=== PATIENT | female | born 1930 ===

== ENCOUNTER 2018-09-29 21:43 | Inpatient (IN) ==
[2018-09-29] MEDS ORDERED: SALINE 3% 15 ML NEB TX NEB ONE (22:35)
[2018-09-29] MEDS ORDERED: XOPENEX 1.25 MG/3 ML NEBULE NEB SCH (22:45)
[2018-09-29 23:11] LABS: ABG BASE EXCESS 10.2 mmol/L (-2.0-2.0)
[2018-09-29 23:12] LABS: ABG HCO3 35.6 mmol/L (22-26)
[2018-09-29 23:50] LABS: BASOPHILS % (AUTO) 0.2 % (0.2-1.0); HEMOGLOBIN 12.8 g/dL (12.0-16.0); LYMPHOCYTES # (AUTO) 1.1 X10^3/uL (1.3-2.9); LYMPHOCYTES % (AUTO) 12.1 % (21.0-51.0); MEAN CORPUSCULAR HEMOGLOBIN 35.8 pg (27.0-34.0); MEAN CORPUSCULAR HGB CONC 33.7 g/dL (33.0-35.0); MEAN CORPUSCULAR VOLUME 106.1 fL (80.0-100.0); MEAN PLATELET VOLUME 6.8 fL (7.4-11.0); MONOCYTES # (AUTO) 0.5 x10^3/uL (0.3-0.8); MONOCYTES % (AUTO) 5.9 % (0.0-13.0); NEUTROPHILS # (AUTO) 7.6 x10^3/uL (2.2-4.8); NEUTROPHILS % (AUTO) 81.8 % (42.0-75.0); PLATELET COUNT 323 X10^3/uL (150.0-450.0); RED BLOOD COUNT 3.58 X10^6/uL (3.5-5.4); RED CELL DISTRIBUTION WIDTH 15.2 % (11.6-16.5); WHITE BLOOD COUNT 9.3 X10^3/uL (3.6-10.0)
[2018-09-29] MEDS ORDERED: NS 250 ML IV 250 ML IV PRN (23:51)
[2018-09-29] MEDS ORDERED: LEVAQUIN PREMIX IV 500 MG 500 MG/100 ML BAG IV ONE (23:57)
[2018-09-29] MEDS ORDERED: NS 250 ML IV 250 ML IV ONE (23:58)
[2018-09-30] MEDS: ROCEPHIN VIAL 1 GRAM IVP SCH ×2 (00:08→08:41)
[2018-09-30 00:14] LABS: ALANINE AMINOTRANSFERASE 29 Units/L (12-78); ALBUMIN 2.9 g/dL (3.4-5.0); ALKALINE PHOSPHATASE 112 Units/L (46-116); ASPARTATE AMINO TRANSFERASE 24 Units/L (15-37); BLOOD UREA NITROGEN 9 mg/dL (7-18); CALCIUM 9.1 mg/dL (8.5-10.1); CHLORIDE 100 mmol/L (98-107); COR NA(FOR HYPERGLY) 142 mmol/L (136-145); CREATININE 0.55 mg/dL (0.55-1.02); SODIUM 141 mmol/L (136-145); TOTAL PROTEIN 7.1 g/dL (6.4-8.2); TSH (3RD GENERATION) 0.757 uIU/mL (0.358-3.74); eGFR NON BLACK RACES > 60 (>60)
[2018-09-30] MEDS ORDERED: POTASSIUM CHLORIDE LIQ 20 MEQ UDC PO PRN (00:42)
[2018-09-30] MEDS ORDERED: MAGNESIUM SULFATE 1 GRAM/100 mL PREMIX 1 GM/100 ML BAG IV PRN (00:42)
[2018-09-30] MEDS ORDERED: MICRO K EXTEN CAP 10 MEQ PO PRN (00:42)
[2018-09-30] MEDS ORDERED: K-DUR TAB 20 MEQ PO PRN (00:42)
[2018-09-30] MEDS ORDERED: POTASSIUM CHL 40 MEQ/NS 0.45% 500 ML IV PRN (00:42)
[2018-09-30] MEDS ORDERED: POTASSIUM CHL 60 MEQ/NS 0.45% 500 ML IV PRN (00:42)
[2018-09-30] MEDS: XOPENEX 1.25 MG/3 ML NEBULE NEB SCH ×4 (00:47→17:02)
[2018-09-30 00:48] LABS: HYPOCHROMASIA SLIGHT; PLATELET MORPHOLOGY COMMENT NORMAL (NORMAL)
[2018-09-30 00:49] VITALS: BMI 17.2
[2018-09-30] MEDS ORDERED: BUTT CREAM (COMPOUND) ONE (01:13)
[2018-09-30] MEDS: LEVAQUIN PREMIX IV 500 MG 500 MG/100 ML BAG IV SCH ×2 (01:30→21:21)
[2018-09-30 07:26] LABS: BILIRUBIN,URINE NEGATIVE (NEGATIVE); BLOOD/HEMOGLOBIN,URINE NEGATIVE (NEGATIVE); GLUCOSE, URINE NEGATIVE (NEGATIVE); KETONES,URINE NEGATIVE (NEGATIVE); LEUKOCYTE ESTERASE ,URINE 1+ (NEGATIVE); NITRITES,URINE NEGATIVE (NEGATIVE); PROTEIN,URINE 2+ (NEGATIVE); UROBILINOGEN,URINE 2+ (NORMAL)
[2018-09-30] MEDS ORDERED: MORPHINE SULFATE INJ 2 MG INJ IVP PRN (07:37)
[2018-09-30 07:50] LABS: APPEARANCE,URINE CLEAR (CLEAR); COLOR,URINE AMBER (YELLOW)
[2018-09-30 07:51] LABS: AMORPHOUS SEDIMENT,UR TRACE /HPF (NEGATIVE); BACTERIA,URINE TRACE /HPF (NEGATIVE); RBC,URINE 0-2 /HPF (NONE SEEN); SQUAMOUS EPITHELIAL CELL,UR FEW /HPF (NEGATIVE)
[2018-09-30] MEDS ORDERED: MORPHINE SULFATE INJ 2 MG INJ ONE (08:17)
[2018-09-30 09:20] LABS: BILIRUBIN,URINE NEGATIVE (NEGATIVE); BLOOD/HEMOGLOBIN,URINE 4+ (NEGATIVE); GLUCOSE, URINE NEGATIVE (NEGATIVE); KETONES,URINE 2+ (NEGATIVE); LEUKOCYTE ESTERASE ,URINE 1+ (NEGATIVE); NITRITES,URINE NEGATIVE (NEGATIVE); PROTEIN,URINE 2+ (NEGATIVE); UROBILINOGEN,URINE 1+ (NORMAL)
[2018-09-30 09:43] LABS: BASOPHILS % (AUTO) 0.3 % (0.2-1.0); HEMATOCRIT 38.3 % (36.0-47.0); HEMOGLOBIN 12.7 g/dL (12.0-16.0); LYMPHOCYTES # (AUTO) 1.5 X10^3/uL (1.3-2.9); LYMPHOCYTES % (AUTO) 11.9 % (21.0-51.0); MEAN CORPUSCULAR HEMOGLOBIN 35.1 pg (27.0-34.0); MEAN CORPUSCULAR HGB CONC 33.2 g/dL (33.0-35.0); MEAN CORPUSCULAR VOLUME 105.7 fL (80.0-100.0); MEAN PLATELET VOLUME 6.9 fL (7.4-11.0); MONOCYTES # (AUTO) 0.6 x10^3/uL (0.3-0.8); MONOCYTES % (AUTO) 4.9 % (0.0-13.0); NEUTROPHILS # (AUTO) 10.4 x10^3/uL (2.2-4.8); NEUTROPHILS % (AUTO) 82.9 % (42.0-75.0); PLATELET COUNT 368 X10^3/uL (150.0-450.0); RED BLOOD COUNT 3.63 X10^6/uL (3.5-5.4); RED CELL DISTRIBUTION WIDTH 15.1 % (11.6-16.5); WHITE BLOOD COUNT 12.5 X10^3/uL (3.6-10.0)
[2018-09-30 09:44] LABS: APPEARANCE,URINE HAZY (CLEAR); COLOR,URINE DARK YELLOW (YELLOW); RBC,URINE TNTC /HPF (NONE SEEN)
[2018-09-30 09:45] LABS: AMORPHOUS SEDIMENT,UR 1+ /HPF (NEGATIVE); BACTERIA,URINE TRACE /HPF (NEGATIVE); MUCUS,URINE MODERATE /HPF (NEGATIVE); SQUAMOUS EPITHELIAL CELL,UR MODERATE /HPF (NEGATIVE)
[2018-09-30 09:47] LABS: LACTIC ACID 1.5 mmol/L (0.4-2.0)
[2018-09-30 09:52] LABS: ALANINE AMINOTRANSFERASE 26 Units/L (12-78); ALBUMIN 2.7 g/dL (3.4-5.0); ALKALINE PHOSPHATASE 117 Units/L (46-116); ANISOCYTOSIS 1+; ASPARTATE AMINO TRANSFERASE 25 Units/L (15-37); BLOOD UREA NITROGEN 8 mg/dL (7-18); CALCIUM 8.9 mg/dL (8.5-10.1); CARBON DIOXIDE 31.1 mmol/L (21-32); CHLORIDE 100 mmol/L (98-107); COR CA(FOR HYPOALB) 9.9 mg/dL (8.5-10.1); COR NA(FOR HYPERGLY) 140 mmol/L (136-145); CREATINE KINASE 50 Units/L (26-192); CREATININE 0.48 mg/dL (0.55-1.02); PLATELET MORPHOLOGY COMMENT NORMAL (NORMAL); SODIUM 140 mmol/L (136-145); TROPONIN I 0.03 ng/mL (0-1.5); eGFR NON BLACK RACES > 60 (>60)
[2018-09-30] MEDS: LASIX IVP SCH ×2 (10:03→21:21)
[2018-09-30] MEDS: SOLU-Medrol 40 MG VIAL IVP SCH ×2 (10:04→21:21)
--- NOTE | 2018-09-30 10:16 | RAD ---
HISTORY: Pneumonia Study: Single view of the chest. Comparison: None. Findings: Cardiomegaly. Complete whiteout of the left hemithorax without definite mediastinal shift. This is confounded by patient's rotation. Osseous structures demonstrate no acute abnormality. IMPRESSION: 1. Complete whiteout of the left hemithorax. Mediastinal shift is indeterminate given the poor positioning of the patient. Differential considerations include large pleural effusion, left main bronchus obstruction with atelectasis or severe left-sided airspace disease. Correlate clinically and with CT if clinically indicated. Reported By:
--- NOTE | 2018-09-30 14:43 | CT ---
CT CHEST WITHOUT IV CONTRAST HISTORY: Shortness of breath with cough. Complete whiteout left hemithorax. Comparison: None Technique: Multiple axial images of the chest were obtained from the thoracic inlet to the upper abdomen. Dose reduction techniques including Automated Exposure Control (AEC) and adjustment of mA and kV were utlized. Findings: The evaluation of the mediastinal structures is diminished without the use of IV contrast. The heart is normal in size. No pericardial effusion. Severe coronary calcification No suspicious mediastinal or axillary lymph nodes. Complete obstruction of the left main bronchus with complete atelectasis of the left lung. Left pleural effusion. Airspace opacities within the right upper and lower lobes. Airways are patent. No suspicious pulmonary nodules or masses. Limited images of the upper abdomen are unremarkable. Severe degenerative disc disease as well as multiple compression fractures of the thoracic spine including its crest T3, 4, 6, 8, 9, 10, 11, 12, L1, L2, L3. IMPRESSION: 1. Complete obstruction of the left lower lobe bronchus by what appears to be a mucous plug. There is subsequent total atelectasis of the left lung and left-sided pleural effusion. Experienced bronchoscopy would likely be of great benefit to this patient. 2. Multifocal pneumonia of the aerated right lung. 3. Multiple compression fractures of the thoracic and lumbar spine. Reported By:
[2018-09-30 15:34] LABS: CKMB % 1.5 % (<4); CREATINE KINASE MB 1.4 ng/mL (0-4.0); TROPONIN I 0.06 ng/mL (0-1.5)
[2018-09-30 15:42] LABS: ABG BASE EXCESS 8.9 mmol/L (-2.0-2.0)
[2018-09-30 15:43] LABS: ABG HCO3 34.6 mmol/L (22-26)
--- NOTE | 2018-09-30 18:13 | DR.H&P ---
H&P - History & Physical for Day of: H&P Date: 09/29/18 - Chief Complaint Chief Complaint: RESP DISTRESS, INCREASED AMS - History of Present Illness History of Present Illness: 88 WF DIRECT ADMIT FROM [facility] WITH INCREASED RESPIRATORY DISTRESS, PT HAD CXR WITH DIFFUSE RIGHT LING OPACITY SUGGESTING PNEUMONIA WITH EFFUSION. PT HAS A VERY MOIST, WET NONPRODUCTIVE COUGH. ON ADMISSION TO FLOOR, 02 SATS RANGE FROM MID 70'S TO HIGH 70'S. PT HAS PMH OF CHF, HTN, HEARING IMPAIRMENT, OA, DEMENTIA. PT ADMITTED FOR TREATMENT OF ACUTE ILLNESS. - Past Medical History Past Medical History: Anxiety, Arthritis, CHF, Dementia, GERD - Past Surgical History Surgical History: Unknown - Social History Does patient currently use any type of tobacco product: No Have you used tobacco products in the last 12 months: No Does any household member use tobacco: No Alcohol Use: None Drug Use: None - Medications Home Medications: Sulfa (Sulfonamide Antibiotics) [SULFA] Allergy (Verified 09/29/18 22:28) CONTINUE taking the following medications acetaminophen [Tylenol] 650 mg PO Q6H PRN 09/30/18 [History] acetaminophen-codeine [Tylenol-Codeine #3] 1 tab PO Q6H PRN 09/30/18 [History] albuterol sulfate 3 ml INHALATION Q6H 09/30/18 [History] alum-mag hydroxide-simeth [Maalox Maximum Strength] 30 ml PO Q4H PRN 09/30/18 [History] aspirin 81 mg PO DAILY 09/30/18 [History] brimonidine 1 drp OPHTHALMIC (EYE) BID 09/30/18 [History] calcium carbonate-vitamin D3 1 tab PO TID 09/30/18 [History] diphenhydramine HCl [Yetpp-T-Yapq] 25 mg PO HS 09/30/18 [History] docusate sodium [DOK] 100 mg PO DAILY 09/30/18 [History] donepezil 5 mg PO HS 09/30/18 [History] dorzolamide 1 drp OPHTHALMIC (EYE) BID 09/30/18 [History] escitalopram oxalate 10 mg PO DAILY 09/30/18 [History] furosemide 20 mg PO QMWF 09/30/18 [History] gabapentin 300 mg PO HS 09/30/18 [History] levofloxacin [Levaquin] 500 mg PO DAILYX7 09/30/18 [History] multivitamin with iron-mineral [Multilex] 1 tab PO DAILY 09/30/18 [History] omeprazole 20 mg PO DAILY 09/30/18 [History] ondansetron HCl [Zofran] 8 mg PO Q8H PRN 09/30/18 [History] phenobarbital 64.8 mg PO BID 09/30/18 [History] phenytoin sodium extended 200 mg PO HS 09/30/18 [History] polyvinyl alcohol [LiquiTears] 2 drp OPHTHALMIC (EYE) QID 09/30/18 [History] potassium chloride 8 meq PO QMWF 09/30/18 [History] protein supplement [ProMod Protein] 30 ml PO BID 09/30/18 [History] vit C,B-Ff-ylwne-lutein-zeaxan [PreserVision AREDS-2] 1 tab PO DAILY 09/30/18 [History] - Review of Systems Constitutional: Weakness Eyes: Vision Change (CHRONIC BLINDNESS) ENT: No Symptoms Reported Respiratory: Cough, Shortness of Breath, Sputum, Wheezing Gastrointestinal: No Symptoms Reported Genitourinary: No Symptoms Reported Musculoskeletal: No Symptoms Reported Skin: Wound Neurological: Weakness, Confusion - Physical Exam Vital Signs: Temperature 100.0 F Pulse Rate [Right Brachial] 106 Pulse Rate 82 Respiratory Rate 48 Blood Pressure [Right Arm] 114/56 Blood Pressure 92/55 O2 Sat by Pulse Oximetry 100 Oriented: Person Eyes: Discharge Ear: Normal Nose: Normal Throat: Dry Respiratory: Rhonchi Throughout, RUL Diminished, RML Diminished, RLL Diminished, LML Diminished, LLL Diminished Cardiovascular: Tachycardia : Normal Auscultation: Bowel Sounds: Normal Palpation: Normal Tenderness: Normal Skin: Wound (SACRAL DECUBITUS STAGE II) Musculoskeletal: Right, Left, Arm, Leg, Instability Affect: Anxious Speech Pattern: Aphasic - Assessment/Plan (1) Respiratory distress Status: Acute Plan: ADMIT, BLOOD AND SPUTUM CULTURE. UA AND UC. CBC CMP CXR ON ADMISSION. EKG, VERIFY HOME MEDICATION. IV ATBX, SUPPLEMENTAL O2, ABG ON ADMISSION (2) Pneumonia Status: Acute (3) Pleural effusion Status: Acute (4) Dementia Status: Acute (5) Seizure disorder Status: Acute - Allergies Allergies/Adverse Reactions: Allergies Allergy/AdvReac Type Severity Reaction Status Date / Time Sulfa (Sulfonamide Allergy Verified 09/29/18 22:28 Antibiotics) [SULFA]
--- NOTE | 2018-09-30 18:21 | PCM.PROG ---
Progress Note - Progress Note for Day of Date of Exam: 09/30/18 - Subjective Subjective: 88 WF DIRECT ADMIT FROM [facility] WITH RESP DISTRESS AND PNEUMONIA, CXR WITH COMPLETE OPACIFICATION TO RIGHT LUNG. PT WAS ADMITTED TO FLOOR LATE LAST NIGHT AND MOVED TO ICU THIS AM. INSERTED VILLANUEVA CATHETER, IV LASIX 40MG BID WITH POTASSIUM REPLACEMENT, IV SOLU MEDROL AND CT CHEST THIS AM, REPEAT ABD. PT WAS HYPOXIC ON ARRIVAL WITH PO2 32, CURRENTLY ON HIGH FLOW HEAT O2. PT HAS DIFFUSE RHONCHI AND LABORED RESPIRATIONS. FAMILY NOTIFIED PER NURSING STAFF ABOUT CRITICAL STATUS. - Past Medical Family Social History Past Med/Fam/Surg Hx: No changes since H&P Allergies: Allergies Sulfa (Sulfonamide Antibiotics) [SULFA] Allergy (Verified 09/29/18 22:28) - Review of Systems ROS: No change since H&P - Vital Signs and I&O's Vital Signs: Temperature 100.0 F Pulse Rate [Right Brachial] 106 Pulse Rate 82 Respiratory Rate 48 Blood Pressure [Right Arm] 114/56 Blood Pressure 92/55 O2 Sat by Pulse Oximetry 100 Intake and Output: Intake & Output 09/28/18 09/29/18 09/30/18 10/01/18 11:59 11:59 11:59 11:59 Intake Total 144 / 144 0 / 0 Output Total 400 / 400 1200 / 1200 Balance -256 / -256 -1200 / -1200 - Physical Exam Oriented: Person Eyes: Discharge Ear: Normal Nose: Normal Throat: Dry Respiratory: Diminished, Rhonchi Cardiovascular: Tachycardia : Normal Auscultation: Bowel Sounds: Normal Tenderness: Normal Skin: Wound (SACRAL DECUBITUS STAGE II) Musculoskeletal: Right, Left, Arm, Leg, Instability Affect: Anxious Speech Pattern: Aphasic - Laboratory and Diagnostics Result Diagrams: 09/30/18 09:22 09/30/18 09:22 Labs: 09/29/18 23:36 Sputum - Endotracheal Wash - Final Laboratory WBC 12.5 X10^3/uL (3.6-10.0) H 09/30/18 09:22 RBC 3.63 X10^6/uL (3.5-5.4) 09/30/18 09:22 Hgb 12.7 g/dL (12.0-16.0) 09/30/18 09:22 Hct 38.3 % (36.0-47.0) 09/30/18 09: MCV 105.7 fL (80.0-100.0) H 09/30/18 09: MCH 35.1 pg (27.0-34.0) H 09/30/18 09: MCHC 33.2 g/dL (33.0-35.0) 09/30/18 09: RDW 15.1 % (11.6-16.5) 09/30/18: Plt Count 368 X10^3/uL (150.0-450.0) 09/30/18: Plt Count Comment Adequate (ADEQUATE) 09/30/18: MPV 6.9 fL (7.4-11.0) L 09/30/18: Neut % (Auto) 82.9 % (42.0-75.0) H 09/30/18: Lymph % (Auto) 11.9 % (21.0-51.0) L 09/30/18: [place] % (Auto) 4.9 % (0.0-13.0) 09/30/18: Eos % (Auto) 0.0 % (0.9-2.9) L 09/30/18: Baso % (Auto) 0.3 % (0.2-1.0) 09/30/18: Neut # (Auto) 10.4 x10^3/uL (2.2-4.8) H 09/30/18: Lymph # (Auto) 1.5 X10^3/uL (1.3-2.9) 09/30/18 09:22 [place] # (Auto) 0.6 x10^3/uL (0.3-0.8) 09/30/18: Eos # (Auto) 0.0 x10^3/uL (0.0-0.2) 09/30/18: Baso # (Auto) 0.0 X10^3/uL (0.0-0.1) 09/30/18: Absolute Nucleated RBC 0.1 /100WBC 09/30/18: Plt Morphology Comment Normal (NORMAL) 09/30/18: RBC Morphology Abnormal (NORMAL) A 09/30/18 09:22 Hypochromasia Slight A 09/29/18 23:10 Anisocytosis 1+ A 09/30/18 09:22 Macrocytosis 1+ A 09/30/18 09:22 Sample Site Rbr 09/30/18 15:25 ABG pH 7.440 (7.35-7.45) 09/30/18 15:25 ABG pCO2 51.0 mmHg (35.0-45.0) H* 09/30/18 15:25 ABG pO2 43.0 mmHg (80.0-100.0) L* 09/30/18 15:25 ABG HCO3 34.6 mmol/L (22-26) H* 09/30/18 15:25 ABG O2 Saturation 81.0 % (90-100) L* 09/30/18 15:25 ABG Base Excess 8.9 mmol/L (-2.0-2.0) H 09/30/18 15:25 Jean-Claude Test N/a 09/30/18 15:25 A-a Gradient 271.0 mmHg 09/30/18 15:25 FiO2 53.0 09/30/18 15:25 Blood Gas Comments Pt mary grace well elj 09/30/18 15:25 Sodium 140 mmol/L (136-145) 09/30/18 09:22 Corrected Sodium 140 mmol/L (136-145) 09/30/18 09:22 Potassium 3.5 mmol/L (3.5-5.1) 09/30/18 09:22 Chloride 100 mmol/L (98-107) 09/30/18 09:22 Carbon Dioxide 31.1 mmol/L (21-32) 09/30/18 09:22 BUN 8 mg/dL (7-18) 09/30/18 09:22 Creatinine 0.48 mg/dL (0.55-1.02) L 09/30/18 09:22 Est GFR (MDRD) Af Amer > 60 (>60) 09/30/18 09:22 Est GFR (MDRD) Non-Af > 60 (>60) 09/30/18 09:22 Glucose 115 mg/dL (65-99) H 09/30/18 09:22 Lactic Acid 1.5 mmol/L (0.4-2.0) 09/30/18 09:22 Calcium 8.9 mg/dL (8.5-10.1) 09/30/18 09:22 Corrected Calcium 9.9 mg/dL (8.5-10.1) 09/30/18 09:22 Magnesium 1.9 mg/dL (1.7-2.9) 09/29/18 23:10 Total Bilirubin 0.60 mg/dL (0.2-1.0) 09/30/18 09:22 AST 25 Units/L (15-37) 09/30/18 09:22 ALT 26 Units/L (12-78) 09/30/18 09:22 Alkaline Phosphatase 117 Units/L (46-116) H 09/30/18 09:22 Creatine Kinase 94 Units/L (26-192) 09/30/18 15:05 CK-MB (CK-2) 1.4 ng/mL (0-4.0) 09/30/18 15:05 CK/CKMB % Calc 1.5 % (<4) 09/30/18 15:05 Troponin I 0.06 ng/mL (0-1.5) 09/30/18 15:05 Total Protein 7.0 g/dL (6.4-8.2) 09/30/18 09:22 Albumin 2.7 g/dL (3.4-5.0) L 09/30/18 09:22 Globulin 4.3 g/dL (2.5-4.5) 09/30/18 09:22 Albumin/Globulin Ratio 0.6 Ratio (1.1-2.1) L 09/30/18 09:22 Free T4 1.10 ng/dL (0.76-1.46) 09/29/18 23:10 TSH 3rd Generation 0.757 uIU/mL (0.358-3.74) 09/29/18 23:10 Specimen Type Catherized urine 09/30/18 09:05 Urine Color Dark yellow (YELLOW) 09/30/18 09:05 Urine Appearance Hazy (CLEAR) 09/30/18 09:05 Urine pH 5.0 (5.0 - 8.0) 09/30/18 09:05 Ur Specific [place] 1.020 (1.000-1.030) 09/30/18 09:05 Urine Protein 2+ (NEGATIVE) 09/30/18 09:05 Urine Glucose (UA) Negative (NEGATIVE) 09/30/18 09:05 Urine Ketones 2+ (NEGATIVE) 09/30/18 09:05 Urine Occult Blood 4+ (NEGATIVE) 09/30/18 09:05 Urine Nitrite Negative (NEGATIVE) 09/30/18 09:05 Urine Bilirubin Negative (NEGATIVE) 09/30/18 09:05 Urine Urobilinogen 1+ (NORMAL) 09/30/18 09:05 Ur Leukocyte Esterase 1+ (NEGATIVE) 09/30/18 09:05 Urine RBC Tntc /HPF (NONE SEEN) 09/30/18 09:05 Urine WBC 3-5 /HPF (NONE SEEN) 09/30/18 09:05 Ur Squamous Epith Cells Moderate /HPF (NEGATIVE) 09/30/18 09:05 Amorphous Sediment 1+ /HPF (NEGATIVE) 09/30/18 09:05 Urine Bacteria Trace /HPF (NEGATIVE) 09/30/18 09:05 Urine Mucus Moderate /HPF (NEGATIVE) 09/30/18 09:05 Ur Culture Indicated? No/not indicated 09/30/18 09:05 - Plan (1) Respiratory distress Status: Acute Plan: ICU STATUS, CT CHEST THIS AM AND REPEAT ABG. BLOOD AND SPUTUM CULTURE. UA AND UC ON ADMISSION, WOUND CARE. REPEAT AM LABS. EKG AND SERIAL CE, RESUMED DILANTIN AND PHENOBARBITAL. CONTINUE SUPPLEMENTAL O2 AND STRICT I & OS. IV ATBX, SUPPLEMENTAL O2, ABG ON ADMISSION (2) Pneumonia Status: Acute (3) Pleural effusion Status: Acute (4) Dementia Status: Acute (5) Seizure disorder Status: Acute
[2018-09-30] MEDS: ALPHAGAN 0.2% OPHTH SOLN OP SCH (21:21)
[2018-09-30] MEDS: ARICEPT TAB 5 MG PO SCH (21:38)
[2018-09-30] MEDS: DILANTIN CAP 100 MG EXT REL PO SCH (21:38)
[2018-09-30] MEDS: PHENOBARBITAL TAB 30 MG (32.4MG) PO SCH (21:38)
[2018-09-30 21:43] LABS: CKMB % 1.3 % (<4); CREATINE KINASE MB 1.5 ng/mL (0-4.0); TROPONIN I 0.04 ng/mL (0-1.5)
[2018-09-30] MEDS: TRUSOPT PLUS (OPHTH) OP SCH (21:55)
[2018-10-01] MEDS: XOPENEX 1.25 MG/3 ML NEBULE NEB SCH ×4 (01:11→23:55)
[2018-10-01 06:10] LABS: BASOPHILS # (AUTO) 0.1 X10^3/uL (0.0-0.1); BASOPHILS % (AUTO) 0.6 % (0.2-1.0); HEMATOCRIT 33.7 % (36.0-47.0); HEMOGLOBIN 11.6 g/dL (12.0-16.0); LYMPHOCYTES # (AUTO) 1.3 X10^3/uL (1.3-2.9); MEAN CORPUSCULAR HEMOGLOBIN 35.7 pg (27.0-34.0); MEAN CORPUSCULAR HGB CONC 34.4 g/dL (33.0-35.0); MEAN CORPUSCULAR VOLUME 103.8 fL (80.0-100.0); MEAN PLATELET VOLUME 6.9 fL (7.4-11.0); MONOCYTES # (AUTO) 0.6 x10^3/uL (0.3-0.8); MONOCYTES % (AUTO) 5.4 % (0.0-13.0); NEUTROPHILS # (AUTO) 8.6 x10^3/uL (2.2-4.8); PLATELET COUNT 322 X10^3/uL (150.0-450.0); RED BLOOD COUNT 3.25 X10^6/uL (3.5-5.4); RED CELL DISTRIBUTION WIDTH 14.9 % (11.6-16.5); WHITE BLOOD COUNT 10.5 X10^3/uL (3.6-10.0)
[2018-10-01 06:36] LABS: ALANINE AMINOTRANSFERASE 22 Units/L (12-78); ALBUMIN 2.4 g/dL (3.4-5.0); ALKALINE PHOSPHATASE 131 Units/L (46-116); ASPARTATE AMINO TRANSFERASE 28 Units/L (15-37); BLOOD UREA NITROGEN 16 mg/dL (7-18); CALCIUM 8.8 mg/dL (8.5-10.1); CARBON DIOXIDE 33.3 mmol/L (21-32); CHLORIDE 100 mmol/L (98-107); COR CA(FOR HYPOALB) 10.1 mg/dL (8.5-10.1); SODIUM 143 mmol/L (136-145); TOTAL PROTEIN 6.5 g/dL (6.4-8.2); eGFR NON BLACK RACES > 60 (>60)
[2018-10-01] MEDS: K-RIDER 10 MEQ/NS 100 ML 10 MEQ/100 ML BAG IV PRN ×4 (06:47→12:35)
[2018-10-01] MEDS: LASIX IVP SCH ×2 (08:15→20:48)
[2018-10-01] MEDS: SOLU-Medrol 40 MG VIAL IVP SCH (08:15)
[2018-10-01] MEDS: ROCEPHIN VIAL 1 GRAM IVP SCH (08:15)
[2018-10-01] MEDS: PHENOBARBITAL TAB 30 MG (32.4MG) PO SCH ×2 (09:46→20:49)
[2018-10-01] MEDS: TRUSOPT PLUS (OPHTH) OP SCH ×2 (09:47→20:46)
[2018-10-01] MEDS: ALPHAGAN 0.2% OPHTH SOLN OP SCH ×2 (09:48→20:48)
--- NOTE | 2018-10-01 09:51 | RAD ---
HISTORY: Shortness of breath, coughing, lethargic. Study: Single-view chest Comparison: Chest x-ray and CT scan of the chest both 09/30/2018. Findings: There is right to left shift of the mediastinum and trachea with complete whiteout of the left lung compatible with central bronchial obstruction as seen on prior studies. This is not significantly changed. Improving aeration is noted in the right lung peripherally with still considerable interstitial infiltrate remaining. Heart size is difficult to estimate, probably normal. No pneumothorax is seen. There are multiple healed left rib fracture seen. IMPRESSION: Continued white out of the left lung. Patient may need therapeutic bronchoscopy. Improving aeration in the right lung with still some peripheral interstitial infiltrate present. Reported By:
[2018-10-01] MEDS: KLOR-CON PO PRN (15:00)
[2018-10-01] MEDS: MORPHINE SULFATE INJ 2 MG INJ IVP PRN ×3 (15:29→23:37)
[2018-10-01] MEDS: LEVAQUIN PREMIX IV 500 MG 500 MG/100 ML BAG IV SCH (20:48)
[2018-10-01] MEDS: ARICEPT TAB 5 MG PO SCH (20:48)
[2018-10-01] MEDS: DILANTIN CAP 100 MG EXT REL PO SCH (20:49)
[2018-10-02] MEDS: XOPENEX 1.25 MG/3 ML NEBULE NEB SCH ×3 (05:12→17:43)
[2018-10-02 05:55] LABS: BASOPHILS % (AUTO) 0.3 % (0.2-1.0); HEMATOCRIT 32.5 % (36.0-47.0); LYMPHOCYTES # (AUTO) 1.3 X10^3/uL (1.3-2.9); LYMPHOCYTES % (AUTO) 12.5 % (21.0-51.0); MEAN CORPUSCULAR HEMOGLOBIN 35.7 pg (27.0-34.0); MEAN CORPUSCULAR HGB CONC 33.9 g/dL (33.0-35.0); MEAN CORPUSCULAR VOLUME 105.3 fL (80.0-100.0); MEAN PLATELET VOLUME 7.1 fL (7.4-11.0); MONOCYTES # (AUTO) 0.9 x10^3/uL (0.3-0.8); MONOCYTES % (AUTO) 8.3 % (0.0-13.0); NEUTROPHILS # (AUTO) 8.3 x10^3/uL (2.2-4.8); NEUTROPHILS % (AUTO) 78.9 % (42.0-75.0); PLATELET COUNT 371 X10^3/uL (150.0-450.0); RED BLOOD COUNT 3.09 X10^6/uL (3.5-5.4); RED CELL DISTRIBUTION WIDTH 15.3 % (11.6-16.5); WHITE BLOOD COUNT 10.5 X10^3/uL (3.6-10.0)
[2018-10-02 06:08] LABS: HYPOCHROMASIA SLIGHT; PLATELET MORPHOLOGY COMMENT NORMAL (NORMAL)
[2018-10-02 06:10] LABS: ALANINE AMINOTRANSFERASE 30 Units/L (12-78); ALBUMIN 2.6 g/dL (3.4-5.0); ALKALINE PHOSPHATASE 121 Units/L (46-116); ASPARTATE AMINO TRANSFERASE 45 Units/L (15-37); BLOOD UREA NITROGEN 19 mg/dL (7-18); CALCIUM 8.7 mg/dL (8.5-10.1); CARBON DIOXIDE 30.2 mmol/L (21-32); CHLORIDE 98 mmol/L (98-107); COR CA(FOR HYPOALB) 9.8 mg/dL (8.5-10.1); CREATININE 0.68 mg/dL (0.55-1.02); SODIUM 141 mmol/L (136-145); TOTAL PROTEIN 6.8 g/dL (6.4-8.2); eGFR NON BLACK RACES > 60 (>60)
[2018-10-02] MEDS: ROCEPHIN VIAL 1 GRAM IVP SCH (08:22)
[2018-10-02] MEDS: TRUSOPT PLUS (OPHTH) OP SCH ×2 (08:22→20:35)
[2018-10-02] MEDS: ALPHAGAN 0.2% OPHTH SOLN OP SCH ×2 (08:22→20:36)
[2018-10-02] MEDS: LASIX IVP SCH ×2 (10:03→20:30)
[2018-10-02] MEDS: PHENOBARBITAL TAB 30 MG (32.4MG) PO SCH ×2 (10:18→20:37)
--- NOTE | 2018-10-02 13:54 | PCM.PROG ---
Progress Note - Progress Note for Day of Date of Exam: 10/01/18 - Subjective Subjective: 88 WF DIRECT ADMIT FROM [facility] WITH RESP DISTRESS AND PNEUMONIA. PT CURRENTLY IN ICU WITH BIPAP THERAPY, PT TOLERATING WELL, MUCH IMPROVED THIS AM SINCE ADMISSION, PT OPENING EYES AND HAS APPROPRIATE VERBAL RESPONSES. PT SISTER HAS BEEN NOTIFIED ABOUT HER HEALTH STATUS. PT HAD DIFFUSE RHONCHI THIS AM, ASKING TO DRINK. WILL CHANGE TO HEATED HIGH FLOW O2 PER RESPIRATORY, CONTINUE LASIX AND POTASSIUM REPLACEMENT. K THIS AM 2.9, RECEIVING K RIDER. WILL CONSULT SPEECH FOR BEDSIDE SWALLOW EVALUATION AND RESUME HOME ANTISEIZURE MEDICATION - Past Medical Family Social History Past Med/Fam/Surg Hx: No changes since H&P Allergies: Allergies Sulfa (Sulfonamide Antibiotics) [SULFA] Allergy (Verified 09/29/18 22:28) - Review of Systems ROS: No change since H&P - Vital Signs and I&O's Vital Signs: Temperature 100.6 F Pulse Rate [Right Brachial] 106 Pulse Rate 111 Respiratory Rate 29 Blood Pressure [Right Arm] 114/56 Blood Pressure 98/56 O2 Sat by Pulse Oximetry 96 Intake and Output: Intake & Output 09/30/18 10/01/18 10/02/18 10/03/18 11:59 11:59 11:59 11:59 Intake Total 144 / 144 158 / 158 950 / 950 Output Total 400 / 400 1700 / 1700 1150 / 1150 Balance -256 / -256 -1542 / -1542 -200 / -200 - Physical Exam Oriented: Person Eyes: Discharge Ear: Normal Nose: Normal Throat: Dry Respiratory: Diminished, Rhonchi Cardiovascular: Tachycardia : Normal Auscultation: Bowel Sounds: Normal Tenderness: Normal Skin: Wound (SACRAL DECUBITUS STAGE II) Musculoskeletal: Right, Left, Arm, Leg, Instability Mood Description: Calm Speech Pattern: Appropriate - Laboratory and Diagnostics Result Diagrams: 10/02/18 05:22 10/02/18 12:26 Labs: 09/29/18 23:36 Sputum - Endotracheal Wash Sputum Culture - Final Escherichia Coli 09/29/18 23:36 Sputum - Endotracheal Wash - Final 09/30/18 04:45 Urine,Catheterized Urine Culture - Final 09/29/18 23:10 Blood Blood Culture - Preliminary 09/29/18 23:30 Blood Blood Culture - Preliminary Laboratory WBC 10.5 X10^3/uL (3.6-10.0) H 10/02/18 05:22 RBC 3.09 X10^6/uL (3.5-5.4) L 10/02/18 05:22 Hgb 11.0 g/dL (12.0-16.0) L 10/02/18 05:22 Hct 32.5 % (36.0-47.0) L 10/02/18 05:22 MCV 105.3 fL (80.0-100.0) H 10/02/18 05:22 MCH 35.7 pg (27.0-34.0) H 10/02/18 05:22 MCHC 33.9 g/dL (33.0-35.0) 10/02/18 05:22 RDW 15.3 % (11.6-16.5) 10/02/18 05:22 Plt Count 371 X10^3/uL (150.0-450.0) 10/02/18 05:22 Plt Count Comment Adequate (ADEQUATE) 10/02/18 05:22 MPV 7.1 fL (7.4-11.0) L 10/02/18 05:22 Neut % (Auto) 78.9 % (42.0-75.0) H 10/02/18 05:22 Lymph % (Auto) 12.5 % (21.0-51.0) L 10/02/18 05:22 [place] % (Auto) 8.3 % (0.0-13.0) 10/02/18 05:22 Eos % (Auto) 0.0 % (0.9-2.9) L 10/02/18 05:22 Baso % (Auto) 0.3 % (0.2-1.0) 10/02/18 05:22 Neut # (Auto) 8.3 x10^3/uL (2.2-4.8) H 10/02/18 05:22 Lymph # (Auto) 1.3 X10^3/uL (1.3-2.9) 10/02/18 05:22 [place]at # (Auto) 0.9 x10^3/uL (0.3-0.8) H 10/02/18 05:22 Eos # (Auto) 0.0 x10^3/uL (0.0-0.2) 10/02/18 05:22 Baso # (Auto) 0.0 X10^3/uL (0.0-0.1) 10/02/18 05:22 Absolute Nucleated RBC 0.0 /100WBC 10/02/18 05:22 Plt Morphology Comment Normal (NORMAL) 10/02/18 05:22 RBC Morphology Abnormal (NORMAL) A 10/02/18 05:22 Hypochromasia Slight A 10/02/18 05:22 Anisocytosis 1+ A 09/30/18 09:22 Macrocytosis 1+ A 10/02/18 05:22 Sample Site Rbr 09/30/18 15:25 ABG pH 7.440 (7.35-7.45) 09/30/18 15:25 ABG pCO2 51.0 mmHg (35.0-45.0) H* 09/30/18 15:25 ABG pO2 43.0 mmHg (80.0-100.0) L* 09/30/18 15:25 ABG HCO3 34.6 mmol/L (22-26) H* 09/30/18 15:25 ABG O2 Saturation 81.0 % (90-100) L* 09/30/18 15:25 ABG Base Excess 8.9 mmol/L (-2.0-2.0) H 09/30/18 15:25 Jean-Claude Test N/a 09/30/18 15:25 A-a Gradient 271.0 mmHg 09/30/18 15:25 FiO2 53.0 09/30/18 15:25 Blood Gas Comments Pt mary grace well elj 09/30/18 15:25 Sodium 141 mmol/L (136-145) 10/02/18 05:22 Corrected Sodium TNP 10/02/18 05:22 Potassium 3.9 mmol/L (3.5-5.1) 10/02/18 12:26 Chloride 98 mmol/L (98-107) 10/02/18 05:22 Carbon Dioxide 30.2 mmol/L (21-32) 10/02/18 05:22 BUN 19 mg/dL (7-18) H 10/02/18 05:22 Creatinine 0.68 mg/dL (0.55-1.02) 10/02/18 05:22 Est GFR (MDRD) Af Amer > 60 (>60) 10/02/18 05:22 Est GFR (MDRD) Non-Af > 60 (>60) 10/02/18 05:22 Glucose 86 mg/dL (65-99) 10/02/18 05:22 Lactic Acid 1.5 mmol/L (0.4-2.0) 09/30/18 09:22 Calcium 8.7 mg/dL (8.5-10.1) 10/02/18 05:22 Corrected Calcium 9.8 mg/dL (8.5-10.1) 10/02/18 05:22 Magnesium 1.9 mg/dL (1.7-2.9) 09/29/18 23:10 Total Bilirubin 0.60 mg/dL (0.2-1.0) 10/02/18 05:22 AST 45 Units/L (15-37) H 10/02/18 05:22 ALT 30 Units/L (12-78) 10/02/18 05:22 Alkaline Phosphatase 121 Units/L (46-116) H 10/02/18 05:22 Creatine Kinase 116 Units/L (26-192) 09/30/18 21:15 CK-MB (CK-2) 1.5 ng/mL (0-4.0) 09/30/18 21:15 CK/CKMB % Calc 1.3 % (<4) 09/30/18 21:15 Troponin I 0.04 ng/mL (0-1.5) 09/30/18 21:15 Total Protein 6.8 g/dL (6.4-8.2) 10/02/18 05:22 Albumin 2.6 g/dL (3.4-5.0) L 10/02/18 05:22 Globulin 4.2 g/dL (2.5-4.5) 10/02/18 05:22 Albumin/Globulin Ratio 0.6 Ratio (1.1-2.1) L 10/02/18 05:22 Free T4 1.10 ng/dL (0.76-1.46) 09/29/18 23:10 TSH 3rd Generation 0.757 uIU/mL (0.358-3.74) 09/29/18 23:10 Specimen Type Catherized urine 09/30/18 09:05 Urine Color Dark yellow (YELLOW) 09/30/18 09:05 Urine Appearance Hazy (CLEAR) 09/30/18 09:05 Urine pH 5.0 (5.0 - 8.0) 09/30/18 09:05 Ur Specific [place] 1.020 (1.000-1.030) 09/30/18 09:05 Urine Protein 2+ (NEGATIVE) 09/30/18 09:05 Urine Glucose (UA) Negative (NEGATIVE) 09/30/18 09:05 Urine Ketones 2+ (NEGATIVE) 09/30/18 09:05 Urine Occult Blood 4+ (NEGATIVE) 09/30/18 09:05 Urine Nitrite Negative (NEGATIVE) 09/30/18 09:05 Urine Bilirubin Negative (NEGATIVE) 09/30/18 09:05 Urine Urobilinogen 1+ (NORMAL) 09/30/18 09:05 Ur Leukocyte Esterase 1+ (NEGATIVE) 09/30/18 09:05 Urine RBC Tntc /HPF (NONE SEEN) 09/30/18 09:05 Urine WBC 3-5 /HPF (NONE SEEN) 09/30/18 09:05 Ur Squamous Epith Cells Moderate /HPF (NEGATIVE) 09/30/18 09:05 Amorphous Sediment 1+ /HPF (NEGATIVE) 09/30/18 09:05 Urine Bacteria Trace /HPF (NEGATIVE) 09/30/18 09:05 Urine Mucus Moderate /HPF (NEGATIVE) 09/30/18 09:05 Ur Culture Indicated? No/not indicated 09/30/18 09:05 - Plan (1) Respiratory distress Status: Acute Plan: CONTINUOUS CARDIAC AND O2 SATURATION MONITORING. BLOOD CULTURE COLLECTED ON ADMISSION. UA AND UC ON ADMISSION, WOUND CARE. REPEAT AM LABS. EKG AND S ERIAL CE OBTAINED ON ADMISSION AND WERE STABLE, RESUMED DILANTIN AND PHENOBARBITAL. CONTINUE SUPPLEMENTAL O2 AND STRICT I & OS. IV ATBX, SUPPLEMENTAL O2, ABG ON ADMISSION (2) Pneumonia Status: Acute (3) Pleural effusion Status: Acute (4) Dementia Status: Acute (5) Seizure disorder Status: Acute
--- NOTE | 2018-10-02 13:59 | PCM.PROG ---
Progress Note - Progress Note for Day of Date of Exam: 10/02/18 - Subjective Subjective: 88 WF DIRECT ADMIT FROM [facility] WITH RESP DISTRESS AND PNEUMONIA. PT CURRENTLY IN ICU WITH BIPAP THERAPY, PT TOLERATING WELL, MUCH IMPROVED THIS AM SINCE ADMISSION, PT OPENING EYES AND HAS APPROPRIATE VERBAL RESPONSES. PT SISTER HAS BEEN NOTIFIED ABOUT HER HEALTH STATUS. PT ON HEATED HIGH FLOW O2 PER RESPIRATORY, CONTINUE LASIX AND POTASSIUM REPLACEMENT. K THIS AM 3.2. SPUTUM + ECOLI, D/C LEVAQUIN, ADD MEROPENEM. REPEAT AM LABS AND CXR. CONTINUE STRICT I & OS - Past Medical Family Social History Past Med/Fam/Surg Hx: No changes since H&P Allergies: Allergies Sulfa (Sulfonamide Antibiotics) [SULFA] Allergy (Verified 09/29/18 22:28) - Review of Systems ROS: No change since H&P - Vital Signs and I&O's Vital Signs: Temperature 100.6 F Pulse Rate [Right Brachial] 106 Pulse Rate 111 Respiratory Rate 29 Blood Pressure [Right Arm] 114/56 Blood Pressure 98/56 O2 Sat by Pulse Oximetry 96 Intake and Output: Intake & Output 09/30/18 10/01/18 10/02/18 10/03/18 11:59 11:59 11:59 11:59 Intake Total 144 / 144 158 / 158 950 / 950 Output Total 400 / 400 1700 / 1700 1150 / 1150 Balance -256 / -256 -1542 / -1542 -200 / -200 - Physical Exam Oriented: Person Eyes: Discharge Ear: Normal Nose: Normal Throat: Dry Respiratory: Diminished, Rhonchi Cardiovascular: Tachycardia : Normal Auscultation: Bowel Sounds: Normal Tenderness: Normal Skin: Wound (SACRAL DECUBITUS STAGE II) Musculoskeletal: Right, Left, Arm, Leg, Instability Mood Description: Calm Affect: Anxious Speech Pattern: Appropriate - Laboratory and Diagnostics Result Diagrams: 10/02/18 05:22 10/02/18 12:26 Labs: 09/29/18 23:36 Sputum - Endotracheal Wash Sputum Culture - Final Escherichia Coli 09/29/18 23:36 Sputum - Endotracheal Wash - Final 09/30/18 04:45 Urine,Catheterized Urine Culture - Final 09/29/18 23:10 Blood Blood Culture - Preliminary 09/29/18 23:30 Blood Blood Culture - Preliminary Laboratory WBC 10.5 X10^3/uL (3.6-10.0) H 10/02/18 05:22 RBC 3.09 X10^6/uL (3.5-5.4) L 10/02/18 05:22 Hgb 11.0 g/dL (12.0-16.0) L 10/02/18 05:22 Hct 32.5 % (36.0-47.0) L 10/02/18 05:22 MCV 105.3 fL (80.0-100.0) H 10/02/18 05:22 MCH 35.7 pg (27.0-34.0) H 10/02/18 05:22 MCHC 33.9 g/dL (33.0-35.0) 10/02/18 05:22 RDW 15.3 % (11.6-16.5) 10/02/18 05:22 Plt Count 371 X10^3/uL (150.0-450.0) 10/02/18 05:22 Plt Count Comment Adequate (ADEQUATE) 10/02/18 05:22 MPV 7.1 fL (7.4-11.0) L 10/02/18 05:22 Neut % (Auto) 78.9 % (42.0-75.0) H 10/02/18 05:22 Lymph % (Auto) 12.5 % (21.0-51.0) L 10/02/18 05:22 [place] % (Auto) 8.3 % (0.0-13.0) 10/02/18 05:22 Eos % (Auto) 0.0 % (0.9-2.9) L 10/02/18 05:22 Baso % (Auto) 0.3 % (0.2-1.0) 10/02/18 05:22 Neut # (Auto) 8.3 x10^3/uL (2.2-4.8) H 10/02/18 05:22 Lymph # (Auto) 1.3 X10^3/uL (1.3-2.9) 10/02/18 05:22 [place] # (Auto) 0.9 x10^3/uL (0.3-0.8) H 10/02/18 05:22 Eos # (Auto) 0.0 x10^3/uL (0.0-0.2) 10/02/18 05:22 Baso # (Auto) 0.0 X10^3/uL (0.0-0.1) 10/02/18 05:22 Absolute Nucleated RBC 0.0 /100WBC 10/02/18 05:22 Plt Morphology Comment Normal (NORMAL) 10/02/18 05:22 RBC Morphology Abnormal (NORMAL) A 10/02/18 05:22 Hypochromasia Slight A 10/02/18 05:22 Anisocytosis 1+ A 09/30/18 09:22 Macrocytosis 1+ A 10/02/18 05:22 Sample Site Rbr 09/30/18 15:25 ABG pH 7.440 (7.35-7.45) 09/30/18 15:25 ABG pCO2 51.0 mmHg (35.0-45.0) H* 09/30/18 15:25 ABG pO2 43.0 mmHg (80.0-100.0) L* 09/30/18 15:25 ABG HCO3 34.6 mmol/L (22-26) H* 09/30/18 15:25 ABG O2 Saturation 81.0 % (90-100) L* 09/30/18 15:25 ABG Base Excess 8.9 mmol/L (-2.0-2.0) H 09/30/18 15:25 Jean-Claude Test N/a 09/30/18 15:25 A-a Gradient 271.0 mmHg 09/30/18 15:25 FiO2 53.0 09/30/18 15:25 Blood Gas Comments Pt mary grace well elj 09/30/18 15:25 Sodium 141 mmol/L (136-145) 10/02/18 05:22 Corrected Sodium TNP 10/02/18 05:22 Potassium 3.9 mmol/L (3.5-5.1) 10/02/18 12:26 Chloride 98 mmol/L (98-107) 10/02/18 05:22 Carbon Dioxide 30.2 mmol/L (21-32) 10/02/18 05:22 BUN 19 mg/dL (7-18) H 10/02/18 05:22 Creatinine 0.68 mg/dL (0.55-1.02) 10/02/18 05:22 Est GFR (MDRD) Af Amer > 60 (>60) 10/02/18 05:22 Est GFR (MDRD) Non-Af > 60 (>60) 10/02/18 05:22 Glucose 86 mg/dL (65-99) 10/02/18 05:22 Lactic Acid 1.5 mmol/L (0.4-2.0) 09/30/18 09:22 Calcium 8.7 mg/dL (8.5-10.1) 10/02/18 05:22 Corrected Calcium 9.8 mg/dL (8.5-10.1) 10/02/18 05:22 Magnesium 1.9 mg/dL (1.7-2.9) 09/29/18 23:10 Total Bilirubin 0.60 mg/dL (0.2-1.0) 10/02/18 05:22 AST 45 Units/L (15-37) H 10/02/18 05:22 ALT 30 Units/L (12-78) 10/02/18 05:22 Alkaline Phosphatase 121 Units/L (46-116) H 10/02/18 05:22 Creatine Kinase 116 Units/L (26-192) 09/30/18 21:15 CK-MB (CK-2) 1.5 ng/mL (0-4.0) 09/30/18 21:15 CK/CKMB % Calc 1.3 % (<4) 09/30/18 21:15 Troponin I 0.04 ng/mL (0-1.5) 09/30/18 21:15 Total Protein 6.8 g/dL (6.4-8.2) 10/02/18 05:22 Albumin 2.6 g/dL (3.4-5.0) L 10/02/18 05:22 Globulin 4.2 g/dL (2.5-4.5) 10/02/18 05:22 Albumin/Globulin Ratio 0.6 Ratio (1.1-2.1) L 10/02/18 05:22 Free T4 1.10 ng/dL (0.76-1.46) 09/29/18 23:10 TSH 3rd Generation 0.757 uIU/mL (0.358-3.74) 09/29/18 23:10 Specimen Type Catherized urine 09/30/18 09:05 Urine Color Dark yellow (YELLOW) 09/30/18 09:05 Urine Appearance Hazy (CLEAR) 09/30/18 09:05 Urine pH 5.0 (5.0 - 8.0) 09/30/18 09:05 Ur Specific [place] 1.020 (1.000-1.030) 09/30/18 09:05 Urine Protein 2+ (NEGATIVE) 09/30/18 09:05 Urine Glucose (UA) Negative (NEGATIVE) 09/30/18 09:05 Urine Ketones 2+ (NEGATIVE) 09/30/18 09:05 Urine Occult Blood 4+ (NEGATIVE) 09/30/18 09:05 Urine Nitrite Negative (NEGATIVE) 09/30/18 09:05 Urine Bilirubin Negative (NEGATIVE) 09/30/18 09:05 Urine Urobilinogen 1+ (NORMAL) 09/30/18 09:05 Ur Leukocyte Esterase 1+ (NEGATIVE) 09/30/18 09:05 Urine RBC Tntc /HPF (NONE SEEN) 09/30/18 09:05 Urine WBC 3-5 /HPF (NONE SEEN) 09/30/18 09:05 Ur Squamous Epith Cells Moderate /HPF (NEGATIVE) 09/30/18 09:05 Amorphous Sediment 1+ /HPF (NEGATIVE) 09/30/18 09:05 Urine Bacteria Trace /HPF (NEGATIVE) 09/30/18 09:05 Urine Mucus Moderate /HPF (NEGATIVE) 09/30/18 09:05 Ur Culture Indicated? No/not indicated 09/30/18 09:05 - Plan (1) Respiratory distress Status: Acute Plan: CONTINUOUS CARDIAC AND O2 SATURATION MONITORING. BLOOD CULTURE COLLECTED ON ADMISSION. UA AND UC ON ADMISSION, WOUND CARE. REPEAT AM LABS. EKG AND SERIAL CE OBTAINED ON ADMISSION AND WERE STABLE, RESUMED DILANTIN AND PHENOBARBITAL. CONTINUE SUPPLEMENTAL O2 AND STRICT I & OS. IV ATBX, SUPPLEMENTAL O2, ABG ON ADMISSION (2) Pneumonia Status: Acute (3) Pleural effusion Status: Acute (4) Dementia Status: Acute (5) Seizure disorder Status: Acute
[2018-10-02] MEDS ORDERED: CONSULT PHARMACY - ANTIBIOTIC XX SCH (14:00)
--- NOTE | 2018-10-02 14:59 | RAD ---
HISTORY: Pneumonia Study: Single-view chest Comparison: Yesterday Findings: The exam is significantly limited nearly nondiagnostic due to poor technique. The lungs appear grossly similar to the prior exam although given the patient's marked rotation and movement evaluation is extremely limited IMPRESSION: 1. Grossly stable exam given the severe limitations as above. A repeat x-ray with the patient is able to cooperate may be of benefit. Reported By:
[2018-10-02] MEDS: XOPENEX 1.25 MG/3 ML NEBULE NEB PRN (16:09)
[2018-10-02] MEDS: ARICEPT TAB 5 MG PO SCH (20:37)
[2018-10-02] MEDS: DILANTIN CAP 100 MG EXT REL PO SCH (20:37)
[2018-10-02] MEDS: MERREM VIAL 1,000 MG in NS 100 ML IV 100 ML IV SCH (22:50)
[2018-10-03] MEDS: XOPENEX 1.25 MG/3 ML NEBULE NEB SCH ×5 (00:16→17:05)
[2018-10-03] MEDS: MERREM VIAL 1,000 MG in NS 100 ML IV 100 ML IV SCH ×3 (05:12→22:05)
[2018-10-03 06:02] LABS: BASOPHILS % (AUTO) 0.4 % (0.2-1.0); HEMATOCRIT 33.7 % (36.0-47.0); HEMOGLOBIN 11.6 g/dL (12.0-16.0); LYMPHOCYTES # (AUTO) 1.6 X10^3/uL (1.3-2.9); LYMPHOCYTES % (AUTO) 22.3 % (21.0-51.0); MEAN CORPUSCULAR HEMOGLOBIN 35.6 pg (27.0-34.0); MEAN CORPUSCULAR HGB CONC 34.3 g/dL (33.0-35.0); MEAN CORPUSCULAR VOLUME 103.7 fL (80.0-100.0); MONOCYTES # (AUTO) 0.5 x10^3/uL (0.3-0.8); MONOCYTES % (AUTO) 7.9 % (0.0-13.0); NEUTROPHILS # (AUTO) 4.8 x10^3/uL (2.2-4.8); NEUTROPHILS % (AUTO) 69.4 % (42.0-75.0); PLATELET COUNT 348 X10^3/uL (150.0-450.0); RED BLOOD COUNT 3.25 X10^6/uL (3.5-5.4); RED CELL DISTRIBUTION WIDTH 14.9 % (11.6-16.5)
[2018-10-03 06:16] LABS: ALANINE AMINOTRANSFERASE 42 Units/L (12-78); ALBUMIN 2.6 g/dL (3.4-5.0); ALKALINE PHOSPHATASE 136 Units/L (46-116); ASPARTATE AMINO TRANSFERASE 69 Units/L (15-37); BLOOD UREA NITROGEN 13 mg/dL (7-18); CALCIUM 8.8 mg/dL (8.5-10.1); CARBON DIOXIDE 33.1 mmol/L (21-32); CHLORIDE 95 mmol/L (98-107); COR CA(FOR HYPOALB) 9.9 mg/dL (8.5-10.1); CREATININE 0.66 mg/dL (0.55-1.02); SODIUM 139 mmol/L (136-145); TOTAL PROTEIN 6.9 g/dL (6.4-8.2); eGFR NON BLACK RACES > 60 (>60)
--- NOTE | 2018-10-03 08:29 | RAD ---
Examination: AP chest, three views History: Pneumonia SOB Comparison 10/02/2018 Findings: Submitted images are again noted to be technically limited and virtually nondiagnostic. There is opacification of the left amarilys thorax with diffuse infiltrate in the right lung. The heart is obscured. There is no obvious pneumothorax. Impression: Opacification left hemithorax may represent pleural effusion and/or airspace consolidation. Diffuse infiltrate right lung. If additional diagnosis is indicated clinically, cross-sectional imaging with CT may be helpful. Reported By:
[2018-10-03] MEDS: PHENOBARBITAL TAB 30 MG (32.4MG) PO SCH ×2 (09:47→20:14)
[2018-10-03] MEDS: ROCEPHIN VIAL 1 GRAM IVP SCH (10:00)
[2018-10-03] MEDS: ALPHAGAN 0.2% OPHTH SOLN OP SCH ×2 (10:00→20:36)
[2018-10-03] MEDS: TRUSOPT PLUS (OPHTH) OP SCH ×2 (10:00→20:36)
[2018-10-03] MEDS: LASIX IVP SCH ×2 (10:00→20:09)
[2018-10-03] MEDS: MORPHINE SULFATE INJ 2 MG INJ IVP PRN (10:08)
[2018-10-03] MEDS: KLOR-CON PO PRN (10:58)
[2018-10-03 16:11] LABS: ABG BASE EXCESS 12.2 mmol/L (-2.0-2.0)
[2018-10-03 16:12] LABS: ABG HCO3 37.3 mmol/L (22-26)
[2018-10-03] MEDS: XOPENEX 1.25 MG/3 ML NEBULE NEB PRN (16:47)
[2018-10-03] MEDS: DILANTIN CAP 100 MG EXT REL PO SCH (20:13)
[2018-10-03] MEDS: COLACE CAP 100 MG PO SCH (20:38)
[2018-10-03] MEDS: ARICEPT TAB 5 MG PO SCH (20:38)
[2018-10-04] MEDS: XOPENEX 1.25 MG/3 ML NEBULE NEB SCH ×5 (00:58→17:01)
[2018-10-04] MEDS: MERREM VIAL 1,000 MG in NS 100 ML IV 100 ML IV SCH ×3 (05:22→21:36)
[2018-10-04 06:59] LABS: BASOPHILS % (AUTO) 0.7 % (0.2-1.0); HEMATOCRIT 34.5 % (36.0-47.0); LYMPHOCYTES # (AUTO) 2.1 X10^3/uL (1.3-2.9); LYMPHOCYTES % (AUTO) 36.4 % (21.0-51.0); MEAN CORPUSCULAR HEMOGLOBIN 35.9 pg (27.0-34.0); MEAN CORPUSCULAR HGB CONC 34.7 g/dL (33.0-35.0); MEAN CORPUSCULAR VOLUME 103.4 fL (80.0-100.0); MEAN PLATELET VOLUME 6.8 fL (7.4-11.0); MONOCYTES # (AUTO) 0.5 x10^3/uL (0.3-0.8); MONOCYTES % (AUTO) 8.8 % (0.0-13.0); NEUTROPHILS # (AUTO) 3.1 x10^3/uL (2.2-4.8); NEUTROPHILS % (AUTO) 54.1 % (42.0-75.0); PLATELET COUNT 370 X10^3/uL (150.0-450.0); RED BLOOD COUNT 3.34 X10^6/uL (3.5-5.4); RED CELL DISTRIBUTION WIDTH 15.1 % (11.6-16.5); WHITE BLOOD COUNT 5.7 X10^3/uL (3.6-10.0)
[2018-10-04 07:08] LABS: ALANINE AMINOTRANSFERASE 42 Units/L (12-78); ALBUMIN 2.4 g/dL (3.4-5.0); ALKALINE PHOSPHATASE 134 Units/L (46-116); ASPARTATE AMINO TRANSFERASE 62 Units/L (15-37); BLOOD UREA NITROGEN 12 mg/dL (7-18); CALCIUM 8.9 mg/dL (8.5-10.1); CARBON DIOXIDE 34.7 mmol/L (21-32); CHLORIDE 97 mmol/L (98-107); COR CA(FOR HYPOALB) 10.2 mg/dL (8.5-10.1); CREATININE 0.67 mg/dL (0.55-1.02); SODIUM 141 mmol/L (136-145); TOTAL PROTEIN 6.9 g/dL (6.4-8.2); eGFR NON BLACK RACES > 60 (>60)
--- NOTE | 2018-10-04 07:40 | RAD ---
HISTORY: Cough, shortness of breath Study: Chest AP portable Comparison: 10/03/2018 Findings: Once again the submitted images are technically limited due to inadequate positioning and rotation. Interstitial lung changes are present throughout the right lung. A small right pleural effusion is likely present. There appears to be complete opacification of the left amarilys thorax however this is likely in part due to the cardiac shadow. Heart size cannot be determined. Little diagnostic comment can be made with reference to the left lung. Chest CT would be helpful for further evaluation if the patient can cooperate and be adequately positioned for CT. IMPRESSION: Severely limited examination for the reasons noted above Interstitial lung changes throughout the right lung and likely a right pleural effusion Little diagnostic, can be made on the left lung which is obscured at least in part by the patient's heart. Chest CT may be of further diagnostic value if the patient can be adequately cooperative an adequately positioned. Reported By:
[2018-10-04] MEDS: PHENOBARBITAL TAB 30 MG (32.4MG) PO SCH ×2 (08:29→21:35)
[2018-10-04] MEDS: MILK OF MAGNESIA PO SCH (08:30)
[2018-10-04] MEDS: LASIX IVP SCH ×2 (08:30→21:36)
[2018-10-04] MEDS: ALPHAGAN 0.2% OPHTH SOLN OP SCH ×2 (08:41→21:37)
[2018-10-04] MEDS: TRUSOPT PLUS (OPHTH) OP SCH ×2 (08:41→21:37)
--- NOTE | 2018-10-04 17:10 | DR.H&P ---
H&P - History & Physical for Day of: H&P Date: 10/04/18 - Chief Complaint Chief Complaint: The patient is an 88-year-old white female who is a resident of [facility] who was admitted on September 29, 2018 with pneumonia with pleural effusion. Since admission, the patient is in ICU. She is a do not resuscitate, however, we have been administering supplemental oxygen via high flow heated oxygen cannula, IV antibiotics, and aggressive respiratory therapy. The patient has become more awake and alert. The patient localizes pain as well as has appropriate verbal responses. The patients family member has been visiting with her and they are aware of her critical status. The patients white blood cell count this morning is much improved, 5.7 The patient has been receiving some IV Lasix and has been hypokalemic. Her potassium is normal today. Her renal function is stable with a BUN of 12 and a creatinine of 0.67. She has stable blood sugar as well. Her chest x-ray yesterday did show grossly stable exam with severe limitations. The patient continues with bilateral pneumonia. - Past Medical History Past Medical History: Anxiety, Arthritis, CHF, Dementia, GERD - Past Surgical History Surgical History: Unknown - Social History Does patient currently use any type of tobacco product: No Have you used tobacco products in the last 12 months: No Does any household member use tobacco: No Alcohol Use: None Drug Use: None - Medications Home Medications: Sulfa (Sulfonamide Antibiotics) [SULFA] Allergy (Verified 09/29/18 22:28) CONTINUE taking the following medications acetaminophen [Tylenol] 650 mg PO Q6H PRN 09/30/18 [History] acetaminophen-codeine [Tylenol-Codeine #3] 1 tab PO Q6H PRN 09/30/18 [History] albuterol sulfate 3 ml INHALATION Q6H 09/30/18 [History] alum-mag hydroxide-simeth [Maalox Maximum Strength] 30 ml PO Q4H PRN 09/30/18 [History] aspirin 81 mg PO DAILY 09/30/18 [History] brimonidine 1 drp OPHTHALMIC (EYE) BID 09/30/18 [History] calcium carbonate-vitamin D3 1 tab PO TID 09/30/18 [History] diphenhydramine HCl [Ctxvl-B-Meyu] 25 mg PO HS 09/30/18 [History] docusate sodium [DOK] 100 mg PO DAILY 09/30/18 [History] donepezil 5 mg PO HS 09/30/18 [History] dorzolamide 1 drp OPHTHALMIC (EYE) BID 09/30/18 [History] escitalopram oxalate 10 mg PO DAILY 09/30/18 [History] furosemide 20 mg PO QMWF 09/30/18 [History] gabapentin 300 mg PO HS 09/30/18 [History] levofloxacin [Levaquin] 500 mg PO DAILYX7 09/30/18 [History] multivitamin with iron-mineral [Multilex] 1 tab PO DAILY 09/30/18 [History] omeprazole 20 mg PO DAILY 09/30/18 [History] ondansetron HCl [Zofran] 8 mg PO Q8H PRN 09/30/18 [History] phenobarbital 64.8 mg PO BID 09/30/18 [History] phenytoin sodium extended 200 mg PO HS 09/30/18 [History] polyvinyl alcohol [LiquiTears] 2 drp OPHTHALMIC (EYE) QID 09/30/18 [History] potassium chloride 8 meq PO QMWF 09/30/18 [History] protein supplement [ProMod Protein] 30 ml PO BID 09/30/18 [History] vit C,Z-Gx-cnemt-lutein-zeaxan [PreserVision AREDS-2] 1 tab PO DAILY 09/30/18 [History] - Physical Exam Vital Signs: Temperature 98.8 F Pulse Rate [Right Brachial] 106 Pulse Rate 88 Respiratory Rate 24 Blood Pressure [Right Arm] 114/56 Blood Pressure 99/59 O2 Sat by Pulse Oximetry 99 Oriented: Person - Assessment/Plan (1) Respiratory distress Status: Acute (2) Pneumonia Status: Acute (3) Pleural effusion Status: Acute (4) Dementia Status: Acute (5) Seizure disorder Status: Acute - Allergies Allergies/Adverse Reactions: Allergies Allergy/AdvReac Type Severity Reaction Status Date / Time Sulfa (Sulfonamide Allergy Verified 09/29/18 22:28 Antibiotics) [SULFA]
[2018-10-04] MEDS: DILANTIN CAP 100 MG EXT REL PO SCH (21:35)
[2018-10-04] MEDS: ARICEPT TAB 5 MG PO SCH (21:35)
[2018-10-04] MEDS: COLACE CAP 100 MG PO SCH (21:35)
[2018-10-05] MEDS: XOPENEX 1.25 MG/3 ML NEBULE NEB SCH ×4 (00:48→17:19)
[2018-10-05] MEDS: MERREM VIAL 1,000 MG in NS 100 ML IV 100 ML IV SCH ×3 (05:48→21:19)
[2018-10-05 06:10] LABS: BASOPHILS % (AUTO) 0.7 % (0.2-1.0); LYMPHOCYTES # (AUTO) 1.5 X10^3/uL (1.3-2.9); LYMPHOCYTES % (AUTO) 32.6 % (21.0-51.0); MEAN CORPUSCULAR HEMOGLOBIN 35.6 pg (27.0-34.0); MEAN CORPUSCULAR HGB CONC 34.3 g/dL (33.0-35.0); MONOCYTES # (AUTO) 0.5 x10^3/uL (0.3-0.8); MONOCYTES % (AUTO) 10.7 % (0.0-13.0); NEUTROPHILS # (AUTO) 2.6 x10^3/uL (2.2-4.8); PLATELET COUNT 371 X10^3/uL (150.0-450.0); RED BLOOD COUNT 3.37 X10^6/uL (3.5-5.4); RED CELL DISTRIBUTION WIDTH 14.6 % (11.6-16.5); WHITE BLOOD COUNT 4.6 X10^3/uL (3.6-10.0)
[2018-10-05 06:22] LABS: ALANINE AMINOTRANSFERASE 45 Units/L (12-78); ALBUMIN 2.3 g/dL (3.4-5.0); ALKALINE PHOSPHATASE 127 Units/L (46-116); ASPARTATE AMINO TRANSFERASE 58 Units/L (15-37); BLOOD UREA NITROGEN 11 mg/dL (7-18); CALCIUM 8.4 mg/dL (8.5-10.1); CARBON DIOXIDE 36.9 mmol/L (21-32); CHLORIDE 95 mmol/L (98-107); COR CA(FOR HYPOALB) 9.8 mg/dL (8.5-10.1); CREATININE 0.58 mg/dL (0.55-1.02); SODIUM 135 mmol/L (136-145); TOTAL PROTEIN 6.5 g/dL (6.4-8.2); eGFR NON BLACK RACES > 60 (>60)
[2018-10-05] MEDS: MILK OF MAGNESIA PO SCH (11:04)
[2018-10-05] MEDS: PHENOBARBITAL TAB 30 MG (32.4MG) PO SCH ×2 (11:04→21:19)
[2018-10-05] MEDS: ALPHAGAN 0.2% OPHTH SOLN OP SCH ×2 (11:04→21:18)
[2018-10-05] MEDS: LASIX IVP SCH ×2 (11:04→23:33)
[2018-10-05] MEDS: TRUSOPT PLUS (OPHTH) OP SCH ×2 (11:05→21:19)
--- NOTE | 2018-10-05 13:38 | PCM.PROG ---
Progress Note - Progress Note for Day of Date of Exam: 10/05/18 - Subjective Subjective: 88 WF DIRECT ADMIT FROM [facility] WITH RESP DISTRESS AND PNEUMONIA. PT CURRENTLY IN ICU WITH BIPAP THERAPY, PT TOLERATING WELL, MUCH IMPROVED THIS AM SINCE ADMISSION, PT OPENING EYES AND HAS APPROPRIATE VERBAL RESPONSES. PT SISTER HAS BEEN NOTIFIED ABOUT HER HEALTH STATUS. PT ON O2 PER NC, CONTINUE LASIX AND POTASSIUM REPLACEMENT. SPUTUM + ECOLI, ON MEROPENEM. REPEAT AM LABS AND CT CHEST. CONTINUE STRICT I & OS - Past Medical Family Social History Past Med/Fam/Surg Hx: No changes since H&P Allergies: Allergies Sulfa (Sulfonamide Antibiotics) [SULFA] Allergy (Verified 09/29/18 22:28) - Review of Systems ROS: No change since H&P - Vital Signs and I&O's Vital Signs: Temperature 98.7 F Pulse Rate [Right Brachial] 106 Pulse Rate 85 Respiratory Rate 31 Blood Pressure [Right Arm] 114/56 Blood Pressure 94/50 O2 Sat by Pulse Oximetry 99 Intake and Output: Intake & Output 10/03/18 10/04/18 10/05/18 10/06/18 11:59 11:59 11:59 11:59 Intake Total 836 / 836 765 / 765 2384 / 2384 Output Total 1999 1475 / 1475 2375 / 2375 Balance -1164 / -1164 -710 / -710 - Physical Exam Oriented: Person Eyes: Discharge Ear: Normal Nose: Normal Throat: Dry Respiratory: Diminished, Rhonchi Cardiovascular: Tachycardia : Normal Auscultation: Bowel Sounds: Normal Tenderness: Normal Skin: Wound (SACRAL DECUBITUS STAGE II) Musculoskeletal: Right, Left, Arm, Leg, Instability Mood Description: Calm Affect: Anxious Speech Pattern: Clear, Appropriate - Laboratory and Diagnostics Result Diagrams: 10/05/18 05:12 10/05/18 05:12 Labs: 09/29/18 23:10 Blood Blood Culture - Preliminary 09/29/18 23:30 Blood Blood Culture - Final 09/29/18 23:36 Sputum - Endotracheal Wash Sputum Culture - Final Escherichia Coli 09/29/18 23:36 Sputum - Endotracheal Wash - Final 09/30/18 04:45 Urine,Catheterized Urine Culture - Final Laboratory WBC 4.6 X10^3/uL (3.6-10.0) 10/05/18 05:12 RBC 3.37 X10^6/uL (3.5-5.4) L 10/05/18 05:12 Hgb 12.0 g/dL (12.0-16.0) 10/05/18 05:12 Hct 35.0 % (36.0-47.0) L 10/05/18 05:12 MCV 104.0 fL (80.0-100.0) H 10/05/18 05:12 MCH 35.6 pg (27.0-34.0) H 10/05/18 05:12 MCHC 34.3 g/dL (33.0-35.0) 10/05/18 05:12 RDW 14.6 % (11.6-16.5) 10/05/18 05:12 Plt Count 371 X10^3/uL (150.0-450.0) 10/05/18 05:12 Plt Count Comment Adequate (ADEQUATE) 10/02/18 05:22 MPV 7.0 fL (7.4-11.0) L 10/05/18 05:12 Neut % (Auto) 56.0 % (42.0-75.0) 10/05/18 05:12 Lymph % (Auto) 32.6 % (21.0-51.0) 10/05/18 05:12 [place] % (Auto) 10.7 % (0.0-13.0) 10/05/18 05:12 Eos % (Auto) 0.0 % (0.9-2.9) L 10/05/18 05:12 Baso % (Auto) 0.7 % (0.2-1.0) 10/05/18 05:12 Neut # (Auto) 2.6 x10^3/uL (2.2-4.8) 10/05/18 05:12 Lymph # (Auto) 1.5 X10^3/uL (1.3-2.9) 10/05/18 05:12 [place] # (Auto) 0.5 x10^3/uL (0.3-0.8) 10/05/18 05:12 Eos # (Auto) 0.0 x10^3/uL (0.0-0.2) 10/05/18 05:12 Baso # (Auto) 0.0 X10^3/uL (0.0-0.1) 10/05/18 05:12 Absolute Nucleated RBC 0.2 /100WBC 10/05/18 05:12 Plt Morphology Comment Normal (NORMAL) 10/02/18 05:22 RBC Morphology Abnormal (NORMAL) A 10/02/18 05:22 Hypochromasia Slight A 10/02/18 05:22 Anisocytosis 1+ A 09/30/18 09:22 Macrocytosis 1+ A 10/02/18 05:22 Sample Site Lb 10/03/18 15:55 ABG pH 7.490 (7.35-7.45) H 10/03/18 15:55 ABG pCO2 49.0 mmHg (35.0-45.0) H 10/03/18 15:55 ABG pO2 61.0 mmHg (80.0-100.0) L 10/03/18 15:55 ABG HCO3 37.3 mmol/L (22-26) H* 10/03/18 15:55 ABG O2 Saturation 93.0 % (90-100) 10/03/18 15:55 ABG Base Excess 12.2 mmol/L (-2.0-2.0) H 10/03/18 15:55 Jean-Claude Test N/a 10/03/18 15:55 A-a Gradient 142.0 mmHg 10/03/18 15:55 FiO2 37.0 10/03/18 15:55 Blood Gas Comments Pt mary grace well cdn 10/03/18 15:55 Sodium 135 mmol/L (136-145) L 10/05/18 05:12 Corrected Sodium TNP 10/05/18 05:12 Potassium 4.0 mmol/L (3.5-5.1) 10/05/18 05:12 Chloride 95 mmol/L (98-107) L 10/05/18 05:12 Carbon Dioxide 36.9 mmol/L (21-32) H 10/05/18 05:12 BUN 11 mg/dL (7-18) 10/05/18 05:12 Creatinine 0.58 mg/dL (0.55-1.02) 10/05/18 05:12 Est GFR (MDRD) Af Amer > 60 (>60) 10/05/18 05:12 Est GFR (MDRD) Non-Af > 60 (>60) 10/05/18 05:12 Glucose 106 mg/dL (65-99) H 10/05/18 05:12 Lactic Acid 1.5 mmol/L (0.4-2.0) 09/30/18 09:22 Calcium 8.4 mg/dL (8.5-10.1) L 10/05/18 05:12 Corrected Calcium 9.8 mg/dL (8.5-10.1) 10/05/18 05:12 Magnesium 2.2 mg/dL (1.7-2.9) 10/03/18 05:30 Total Bilirubin 0.40 mg/dL (0.2-1.0) 10/05/18 05:12 AST 58 Units/L (15-37) H 10/05/18 05:12 ALT 45 Units/L (12-78) 10/05/18 05:12 Alkaline Phosphatase 127 Units/L (46-116) H 10/05/18 05:12 Creatine Kinase 116 Units/L (26-192) 09/30/18 21:15 CK-MB (CK-2) 1.5 ng/mL (0-4.0) 09/30/18 21:15 CK/CKMB % Calc 1.3 % (<4) 09/30/18 21:15 Troponin I 0.04 ng/mL (0-1.5) 09/30/18 21:15 Total Protein 6.5 g/dL (6.4-8.2) 10/05/18 05:12 Albumin 2.3 g/dL (3.4-5.0) L 10/05/18 05:12 Globulin 4.2 g/dL (2.5-4.5) 10/05/18 05:12 Albumin/Globulin Ratio 0.5 Ratio (1.1-2.1) L 10/05/18 05:12 Free T4 1.10 ng/dL (0.76-1.46) 09/29/18 23:10 TSH 3rd Generation 0.757 uIU/mL (0.358-3.74) 09/29/18 23:10 Specimen Type Catherized urine 09/30/18 09:05 Urine Color Dark yellow (YELLOW) 09/30/18 09:05 Urine Appearance Hazy (CLEAR) 09/30/18 09:05 Urine pH 5.0 (5.0 - 8.0) 09/30/18 09:05 Ur Specific [place] 1.020 (1.000-1.030) 09/30/18 09:05 Urine Protein 2+ (NEGATIVE) 09/30/18 09:05 Urine Glucose (UA) Negative (NEGATIVE) 09/30/18 09:05 Urine Ketones 2+ (NEGATIVE) 09/30/18 09:05 Urine Occult Blood 4+ (NEGATIVE) 09/30/18 09:05 Urine Nitrite Negative (NEGATIVE) 09/30/18 09:05 Urine Bilirubin Negative (NEGATIVE) 09/30/18 09:05 Urine Urobilinogen 1+ (NORMAL) 09/30/18 09:05 Ur Leukocyte Esterase 1+ (NEGATIVE) 09/30/18 09:05 Urine RBC Tntc /HPF (NONE SEEN) 09/30/18 09:05 Urine WBC 3-5 /HPF (NONE SEEN) 09/30/18 09:05 Ur Squamous Epith Cells Moderate /HPF (NEGATIVE) 09/30/18 09:05 Amorphous Sediment 1+ /HPF (NEGATIVE) 09/30/18 09:05 Urine Bacteria Trace /HPF (NEGATIVE) 09/30/18 09:05 Urine Mucus Moderate /HPF (NEGATIVE) 09/30/18 09:05 Ur Culture Indicated? No/not indicated 09/30/18 09:05 Acetone, Semi-Quant Small (NEGATIVE) H 10/03/18 16:11 - Plan (1) Respiratory distress Status: Acute Plan: CONTINUOUS CARDIAC AND O2 SATURATION MONITORING. BLOOD CULTURE COLLECTED ON ADMISSION. UA AND UC ON ADMISSION, WOUND CARE. REPEAT AM LABS. EKG AND SERIAL CE OBTAINED ON ADMISSION AND WERE STABLE, RESUMED DILANTIN AND PHENOBARBITAL. CONTINUE SUPPLEMENTAL O2 AND STRICT I & OS. IV ATBX, SUPPLEMENTAL O2, ABG ON ADMISSION (2) Pneumonia Status: Acute (3) Pleural effusion Status: Acute Plan: REPEAT CT CHEST WITH CONTRAST (4) Dementia Status: Acute (5) Seizure disorder Status: Acute (6) Protein-calorie malnutrition Status: Acute Plan: DIETARY CONSULT
--- NOTE | 2018-10-05 14:45 | CT ---
CT CHEST WITH IV CONTRAST HISTORY: Pneumonia. Comparison: Chest CT 09/30/2018 Technique: Multiple axial images of the chest were obtained from the thoracic inlet to the upper abdomen after the administration of IV contrast.Dose reduction techniques including Automated Exposure Control (AEC) and adjustment of mA and kV were utlized. Findings: The heart is normal in size. No pericardial effusion. Large hiatal hernia No suspicious mediastinal or axillary lymph nodes. Although not optimized to detect pulmonary embolism, no large central pulmonary emboli are seen. Again there is complete obstruction of the left main bronchus with total atelectasis of the left lung, small left pleural effusion and mediastinal shift to the left. No significant change from prior. Patchy regions of ground-glass can be seen in the right lung which have improved when compared to prior where there was dense consolidation and lobar pneumonia. Limited images of the upper abdomen are unremarkable. No aggressive osseous lesions. Redemonstration of multiple compression deformities of the thoracolumbar spine. IMPRESSION: 1. No change in left main bronchus obstruction by mucous plug with complete atelectasis/collapse of the left lung. Again STRONGLY RECOMMEND BRONCHOSCOPY to remove this obstruction and aerate the left lung unless there is absolute contraindication. 2. Interval improvement of previously identified right-sided airspace disease. Reported By:
[2018-10-05] MEDS: ARICEPT TAB 5 MG PO SCH (21:18)
[2018-10-05] MEDS: COLACE CAP 100 MG PO SCH (21:18)
[2018-10-05] MEDS: DILANTIN CAP 100 MG EXT REL PO SCH (21:19)
[2018-10-06] MEDS: XOPENEX 1.25 MG/3 ML NEBULE NEB SCH ×4 (01:25→17:33)
[2018-10-06] MEDS: MERREM VIAL 1,000 MG in NS 100 ML IV 100 ML IV SCH ×3 (05:06→21:38)
[2018-10-06 06:43] LABS: BASOPHILS % (AUTO) 0.6 % (0.2-1.0); HEMATOCRIT 33.8 % (36.0-47.0); HEMOGLOBIN 11.7 g/dL (12.0-16.0); LYMPHOCYTES # (AUTO) 1.4 X10^3/uL (1.3-2.9); LYMPHOCYTES % (AUTO) 31.9 % (21.0-51.0); MEAN CORPUSCULAR HEMOGLOBIN 35.7 pg (27.0-34.0); MEAN CORPUSCULAR HGB CONC 34.6 g/dL (33.0-35.0); MEAN CORPUSCULAR VOLUME 103.3 fL (80.0-100.0); MONOCYTES # (AUTO) 0.5 x10^3/uL (0.3-0.8); MONOCYTES % (AUTO) 11.2 % (0.0-13.0); NEUTROPHILS # (AUTO) 2.5 x10^3/uL (2.2-4.8); NEUTROPHILS % (AUTO) 56.3 % (42.0-75.0); PLATELET COUNT 349 X10^3/uL (150.0-450.0); RED BLOOD COUNT 3.27 X10^6/uL (3.5-5.4); RED CELL DISTRIBUTION WIDTH 14.5 % (11.6-16.5); WHITE BLOOD COUNT 4.4 X10^3/uL (3.6-10.0)
[2018-10-06 06:57] LABS: ALANINE AMINOTRANSFERASE 33 Units/L (12-78); ALBUMIN 2.3 g/dL (3.4-5.0); ALKALINE PHOSPHATASE 114 Units/L (46-116); ASPARTATE AMINO TRANSFERASE 38 Units/L (15-37); BLOOD UREA NITROGEN 12 mg/dL (7-18); CALCIUM 8.6 mg/dL (8.5-10.1); CARBON DIOXIDE 35.8 mmol/L (21-32); CHLORIDE 93 mmol/L (98-107); CREATININE 0.53 mg/dL (0.55-1.02); SODIUM 135 mmol/L (136-145); TOTAL PROTEIN 6.5 g/dL (6.4-8.2); eGFR NON BLACK RACES > 60 (>60)
[2018-10-06] MEDS: TRUSOPT PLUS (OPHTH) OP SCH ×2 (10:10→21:38)
[2018-10-06] MEDS: ALPHAGAN 0.2% OPHTH SOLN OP SCH ×2 (10:10→21:37)
[2018-10-06] MEDS: MILK OF MAGNESIA PO SCH (10:10)
[2018-10-06] MEDS: PHENOBARBITAL TAB 30 MG (32.4MG) PO SCH ×2 (10:10→21:38)
[2018-10-06] MEDS: K-RIDER 10 MEQ/NS 100 ML 10 MEQ/100 ML BAG IV PRN ×2 (11:00→12:09)
[2018-10-06] MEDS: LASIX IVP SCH ×2 (14:59→22:24)
--- NOTE | 2018-10-06 18:23 | PCM.PROG ---
Progress Note - Progress Note for Day of Date of Exam: 10/06/18 - Subjective Subjective: 88 WF DIRECT ADMIT FROM [facility] WITH RESP DISTRESS AND PNEUMONIA. PT CURRENTLY IN ICU WITH CONTINOUS O2 AND CARDIAC MONITORING. PT TOLERATING WELL, MUCH IMPROVED THIS AM SINCE ADMISSION, PT OPENING EYES AND HAS APPROPRIATE VERBAL RESPONSES. CONTINUE LASIX AND POTASSIUM REPLACEMENT. SPUTUM + ECOLI, ON MEROPENEM. BLOOD CULTURE + X1, REPEAT BC ORDERED. RESTARTED HEATED HI FLOW O2 TO FACILITATE MUCOUS. REPEAT AM LABS. CONTINUE STRICT I & OS - Past Medical Family Social History Past Med/Fam/Surg Hx: No changes since H&P Allergies: Allergies Sulfa (Sulfonamide Antibiotics) [SULFA] Allergy (Verified 09/29/18 22:28) - Review of Systems ROS: No change since H&P - Vital Signs and I&O's Vital Signs: Temperature 97.9 F Pulse Rate [Right Brachial] 106 Pulse Rate 86 Respiratory Rate 28 Blood Pressure [Right Arm] 114/56 Blood Pressure 86/53 O2 Sat by Pulse Oximetry 92 Intake and Output: Intake & Output 10/04/18 10/05/18 10/06/18 10/07/18 11:59 11:59 11:59 11:59 Intake Total 765 / 765 2384 / 2384 1028 / 1028 430 / 430 Output Total 1475 / 1475 2375 / 2375 1500 / 1500 160 / 160 Balance -710 / -710 9 / 9 -472 / -472 270 / 270 - Physical Exam Oriented: Person Eyes: Discharge Ear: Normal Nose: Normal Throat: Dry Respiratory: Diminished, Rhonchi Cardiovascular: Tachycardia : Normal Auscultation: Bowel Sounds: Normal Tenderness: Normal Skin: Wound (SACRAL DECUBITUS STAGE II) Musculoskeletal: Right, Left, Arm, Leg, Instability Mood Description: Calm Affect: Anxious Speech Pattern: Clear, Appropriate - Laboratory and Diagnostics Result Diagrams: 10/06/18 06:00 10/06/18 16:27 Labs: 09/29/18 23:10 Blood Blood Culture - Preliminary 09/29/18 23:30 Blood Blood Culture - Final 09/29/18 23:36 Sputum - Endotracheal Wash Sputum Culture - Final Escherichia Coli 09/29/18 23:36 Sputum - Endotracheal Wash - Final 09/30/18 04:45 Urine,Catheterized Urine Culture - Final Laboratory WBC 4.4 X10^3/uL (3.6-10.0) 10/06/18 06:00 RBC 3.27 X10^6/uL (3.5-5.4) L 10/06/18 06:00 Hgb 11.7 g/dL (12.0-16.0) L 10/06/18 06:00 Hct 33.8 % (36.0-47.0) L 10/06/18 06:00 MCV 103.3 fL (80.0-100.0) H 10/06/18 06:00 MCH 35.7 pg (27.0-34.0) H 10/06/18 06:00 MCHC 34.6 g/dL (33.0-35.0) 10/06/18 06:00 RDW 14.5 % (11.6-16.5) 10/06/18 06:00 Plt Count 349 X10^3/uL (150.0-450.0) 10/06/18 06:00 Plt Count Comment Adequate (ADEQUATE) 10/02/18 05:22 MPV 7.0 fL (7.4-11.0) L 10/06/18 06:00 Neut % (Auto) 56.3 % (42.0-75.0) 10/06/18 06:00 Lymph % (Auto) 31.9 % (21.0-51.0) 10/06/18 06:00 [place] % (Auto) 11.2 % (0.0-13.0) 10/06/18 06:00 Eos % (Auto) 0.0 % (0.9-2.9) L 10/06/18 06:00 Baso % (Auto) 0.6 % (0.2-1.0) 10/06/18 06:00 Neut # (Auto) 2.5 x10^3/uL (2.2-4.8) 10/06/18 06:00 Lymph # (Auto) 1.4 X10^3/uL (1.3-2.9) 10/06/18 06:00 [place] # (Auto) 0.5 x10^3/uL (0.3-0.8) 10/06/18 06:00 Eos # (Auto) 0.0 x10^3/uL (0.0-0.2) 10/06/18 06:00 Baso # (Auto) 0.0 X10^3/uL (0.0-0.1) 10/06/18 06:00 Absolute Nucleated RBC 0.2 /100WBC 10/06/18 06:00 Plt Morphology Comment Normal (NORMAL) 10/02/18 05:22 RBC Morphology Abnormal (NORMAL) A 10/02/18 05:22 Hypochromasia Slight A 10/02/18 05:22 Anisocytosis 1+ A 09/30/18 09:22 Macrocytosis 1+ A 10/02/18 05:22 Sample Site Lb 10/03/18 15:55 ABG pH 7.490 (7.35-7.45) H 10/03/18 15:55 ABG pCO2 49.0 mmHg (35.0-45.0) H 10/03/18 15:55 ABG pO2 61.0 mmHg (80.0-100.0) L 10/03/18 15:55 ABG HCO3 37.3 mmol/L (22-26) H* 10/03/18 15:55 ABG O2 Saturation 93.0 % (90-100) 10/03/18 15:55 ABG Base Excess 12.2 mmol/L (-2.0-2.0) H 10/03/18 15:55 Jean-Claude Test N/a 10/03/18 15:55 A-a Gradient 142.0 mmHg 10/03/18 15:55 FiO2 37.0 10/03/18 15:55 Blood Gas Comments Pt mary grace well cdn 10/03/18 15:55 Sodium 135 mmol/L (136-145) L 10/06/18 06:00 Corrected Sodium TNP 10/06/18 06:00 Potassium 4.0 mmol/L (3.5-5.1) 10/06/18 16:27 Chloride 93 mmol/L (98-107) L 10/06/18 06:00 Carbon Dioxide 35.8 mmol/L (21-32) H 10/06/18 06:00 BUN 12 mg/dL (7-18) 10/06/18 06:00 Creatinine 0.53 mg/dL (0.55-1.02) L 10/06/18 06:00 Est GFR (MDRD) Af Amer > 60 (>60) 10/06/18 06:00 Est GFR (MDRD) Non-Af > 60 (>60) 10/06/18 06:00 Glucose 105 mg/dL (65-99) H 10/06/18 06:00 Lactic Acid 1.5 mmol/L (0.4-2.0) 09/30/18 09:22 Calcium 8.6 mg/dL (8.5-10.1) 10/06/18 06:00 Corrected Calcium 10.0 mg/dL (8.5-10.1) 10/06/18 06:00 Magnesium 2.2 mg/dL (1.7-2.9) 10/03/18 05:30 Total Bilirubin 0.40 mg/dL (0.2-1.0) 10/06/18 06:00 AST 38 Units/L (15-37) H 10/06/18 06:00 ALT 33 Units/L (12-78) 10/06/18 06:00 Alkaline Phosphatase 114 Units/L (46-116) 10/06/18 06:00 Creatine Kinase 116 Units/L (26-192) 09/30/18 21:15 CK-MB (CK-2) 1.5 ng/mL (0-4.0) 09/30/18 21:15 CK/CKMB % Calc 1.3 % (<4) 09/30/18 21:15 Troponin I 0.04 ng/mL (0-1.5) 09/30/18 21:15 Total Protein 6.5 g/dL (6.4-8.2) 10/06/18 06:00 Albumin 2.3 g/dL (3.4-5.0) L 10/06/18 06:00 Globulin 4.2 g/dL (2.5-4.5) 10/06/18 06:00 Albumin/Globulin Ratio 0.5 Ratio (1.1-2.1) L 10/06/18 06:00 Free T4 1.10 ng/dL (0.76-1.46) 09/29/18 23:10 TSH 3rd Generation 0.757 uIU/mL (0.358-3.74) 09/29/18 23:10 Specimen Type Catherized urine 09/30/18 09:05 Urine Color Dark yellow (YELLOW) 09/30/18 09:05 Urine Appearance Hazy (CLEAR) 09/30/18 09:05 Urine pH 5.0 (5.0 - 8.0) 09/30/18 09:05 Ur Specific [place] 1.020 (1.000-1.030) 09/30/18 09:05 Urine Protein 2+ (NEGATIVE) 09/30/18 09:05 Urine Glucose (UA) Negative (NEGATIVE) 09/30/18 09:05 Urine Ketones 2+ (NEGATIVE) 09/30/18 09:05 Urine Occult Blood 4+ (NEGATIVE) 09/30/18 09:05 Urine Nitrite Negative (NEGATIVE) 09/30/18 09:05 Urine Bilirubin Negative (NEGATIVE) 09/30/18 09:05 Urine Urobilinogen 1+ (NORMAL) 09/30/18 09:05 Ur Leukocyte Esterase 1+ (NEGATIVE) 09/30/18 09:05 Urine RBC Tntc /HPF (NONE SEEN) 09/30/18 09:05 Urine WBC 3-5 /HPF (NONE SEEN) 09/30/18 09:05 Ur Squamous Epith Cells Moderate /HPF (NEGATIVE) 09/30/18 09:05 Amorphous Sediment 1+ /HPF (NEGATIVE) 09/30/18 09:05 Urine Bacteria Trace /HPF (NEGATIVE) 09/30/18 09:05 Urine Mucus Moderate /HPF (NEGATIVE) 09/30/18 09:05 Ur Culture Indicated? No/not indicated 09/30/18 09:05 Acetone, Semi-Quant Small (NEGATIVE) H 10/03/18 16:11 - Plan (1) Respiratory distress Status: Acute Plan: CONTINUOUS CARDIAC AND O2 SATURATION MONITORING. BLOOD CULTURE COLLECTED ON ADMISSION. UA AND UC ON ADMISSION, WOUND CARE. REPEAT AM LABS. EKG AND SERIAL CE OBTAINED ON ADMISSION AND WERE STABLE, RESUMED DILANTIN AND P HENOBARBITAL. CONTINUE SUPPLEMENTAL O2 AND STRICT I & OS. IV ATBX, SUPPLEMENTAL O2, ABG ON ADMISSION (2) Pneumonia Status: Acute (3) Pleural effusion Status: Acute Plan: REPEAT CT CHEST WITH CONTRAST (4) Dementia Status: Acute (5) Seizure disorder Status: Acute (6) Protein-calorie malnutrition Status: Acute Plan: DIETARY CONSULT
[2018-10-06] MEDS: ARICEPT TAB 5 MG PO SCH (21:37)
[2018-10-06] MEDS: COLACE CAP 100 MG PO SCH (21:37)
[2018-10-06] MEDS: DILANTIN CAP 100 MG EXT REL PO SCH (21:37)
[2018-10-07] MEDS: XOPENEX 1.25 MG/3 ML NEBULE NEB SCH ×3 (01:17→12:44)
[2018-10-07] MEDS: MERREM VIAL 1,000 MG in NS 100 ML IV 100 ML IV SCH (05:15)
[2018-10-07 06:32] LABS: BASOPHILS % (AUTO) 0.9 % (0.2-1.0); EOSINOPHILS % (AUTO) 0.2 % (0.9-2.9); HEMATOCRIT 37.1 % (36.0-47.0); HEMOGLOBIN 12.6 g/dL (12.0-16.0); LYMPHOCYTES # (AUTO) 1.7 X10^3/uL (1.3-2.9); LYMPHOCYTES % (AUTO) 34.5 % (21.0-51.0); MEAN CORPUSCULAR HEMOGLOBIN 35.4 pg (27.0-34.0); MEAN PLATELET VOLUME 7.6 fL (7.4-11.0); MONOCYTES # (AUTO) 0.6 x10^3/uL (0.3-0.8); MONOCYTES % (AUTO) 11.8 % (0.0-13.0); NEUTROPHILS # (AUTO) 2.6 x10^3/uL (2.2-4.8); NEUTROPHILS % (AUTO) 52.6 % (42.0-75.0); PLATELET COUNT 315 X10^3/uL (150.0-450.0); RED BLOOD COUNT 3.57 X10^6/uL (3.5-5.4); RED CELL DISTRIBUTION WIDTH 14.6 % (11.6-16.5)
[2018-10-07 06:38] LABS: ALANINE AMINOTRANSFERASE 34 Units/L (12-78); ALBUMIN 2.5 g/dL (3.4-5.0); ALKALINE PHOSPHATASE 115 Units/L (46-116); ASPARTATE AMINO TRANSFERASE 33 Units/L (15-37); BLOOD UREA NITROGEN 12 mg/dL (7-18); CALCIUM 8.7 mg/dL (8.5-10.1); CHLORIDE 93 mmol/L (98-107); COR CA(FOR HYPOALB) 9.9 mg/dL (8.5-10.1); CREATININE 0.67 mg/dL (0.55-1.02); SODIUM 136 mmol/L (136-145); TOTAL PROTEIN 6.8 g/dL (6.4-8.2); eGFR NON BLACK RACES > 60 (>60)
[2018-10-07] MEDS: LASIX IVP SCH ×2 (09:32→11:40)
[2018-10-07] MEDS: PHENOBARBITAL TAB 30 MG (32.4MG) PO SCH (09:32)
[2018-10-07] MEDS: TRUSOPT PLUS (OPHTH) OP SCH (09:33)
[2018-10-07] MEDS: ALPHAGAN 0.2% OPHTH SOLN OP SCH (09:33)
[2018-10-07 11:42] VITALS: BP 88/51
[2018-10-07] MEDS ORDERED: Atrovent NEB TX 0.02% NEB ONE (11:47)
== END 2018-10-07 15:00 | DRG 178 ==
LOC: MED/SURG 21:43 → ICU 09-30 09:10 → MED/SURG 10-07 11:45
PROVIDERS: ADMIT Internal Medicine; ATTEND Internal Medicine
DX: R06.03 Acute respiratory distress; R41.82 Altered mental status, unspecified; R94.31 Abnormal electrocardiogram [ECG] [EKG]; M19.90 Unspecified osteoarthritis, unspecified site; R09.02 Hypoxemia; J15.5 Pneumonia due to Escherichia coli; L89.152 Pressure ulcer of sacral region, stage 2; H54.7 Unspecified visual loss; Z66 Do not resuscitate; G40.89 Other seizures; I10 Essential (primary) hypertension; E46 Unspecified protein-calorie malnutrition; E87.6 Hypokalemia; J91.8 Pleural effusion in other conditions classified elsewhere; F03.90 Unspecified dementia, unspecified severity, without behavioral disturbance, psychotic disturbance, mood disturbance, and anxiety
CPT/HCPCS: 36415; 36600; 71010; 71045; 71250; 71260; 80053; 81001; 82009; 82550; 82553; 82803; 83605; 83735; 84132; 84439; 84443; 84484; 85025; 87040; 87070; 87077; 87086; 87153; 87186; 87205; 93005; 94640; 94660; 94760; A4222; A4618; A7030; J0696; J1940; J1956; J2185; J2270; J2920; J3475; J3480; J7050; J7644